=== PATIENT | male | born 1960 | race Caucasian/White ===

== ENCOUNTER → 2018-03-07 11:00 | Outpatient (CLI) | payer OTHER, BC, SELFPAY ==
--- NOTE | 2018-03-07 11:00 | DT_ITS ---
This patient was seen during an EMR downtime March 04, 2018 - March 11, 2018. This patient may have a combination of paper and electronic documentation or all paper documentation. All documentation is viewable within the e-chart portion of [facility] for each patient visit.
== END ==
PROVIDERS: Family Provider Family Medicine; PCP Family Medicine; Visit Provider Family Medicine
DX: N41.9 Inflammatory disease of prostate, unspecified (principal)
CPT/HCPCS: 81001; 87086

== ENCOUNTER → 2018-04-10 17:43 | Outpatient (CLI) | payer OTHER, SELFPAY ==
[2018-04-10 17:45] LABS: Red Blood Cells-Urine 0 SEEN /hpf (0-5)
[2018-04-10 18:20] LABS: Color, Urine Amber (Yellow); Glucose, Dipstick Normal (Normal); Ketone-Dipstick 5 mg/dl (Negative); Leukocyte Esterase-Dipstick 25 /ul (Negative); Nitrite-Dipstick Negative (Negative); Occult Blood-Urine 10 /ul (Negative); Protein-Dipstick 30 mg/dl (Negative); Urine Clarity Clear (Clear); Urine Urobilinogen 1 mg/dl (Normal)
[2018-04-10 18:39] LABS: Urine Bilirubin Dipstick 1 mg/dL (Negative)
[2018-04-10 18:48] LABS: Hyaline Cast 10-25 SEEN /lpf (0-5)
[2018-04-10 18:49] LABS: Bacteria 2+ /hpf (None Seen)
[2018-04-10 18:50] LABS: Mucous, Urine 2+ /hpf (<or=2+); Squamous Epithelial Cells - UA 0-5 SEEN /hpf (0-5)
[2018-04-10 18:51] LABS: White Blood Cells 0-5 SEEN /hpf (0-5)
== END ==
PROVIDERS: Family Provider Family Medicine; PCP Family Medicine; Visit Provider Family Medicine
DX: N41.9 Inflammatory disease of prostate, unspecified (principal)
CPT/HCPCS: 81001; 87086

== ENCOUNTER → 2018-04-24 11:46 | Outpatient (CLI) | payer OTHER, SELFPAY ==
--- NOTE | 2018-04-24 11:50 | CT_ITS ---
STUDY: CT ABDOMEN AND PELVIS WITH CONTRAST REASON FOR EXAM: Male, 58 years old. Lower abdominal pain, distention RADIATION DOSAGE (If Supplied By Facility): CTDIvol = ( 18.36 ) mGy, DLP = ( 1505.37 ) mGycm TECHNIQUE: Transaxial images were obtained from the dome of the diaphragm to the symphysis pubis without oral contrast. 100ML ml of Isovue 300 contrast was administered. Sagittal and coronal images were reconstructed. Individualized dose optimization techniques were used for this CT. COMPARISON: None. FINDINGS: The visualized lung bases are unremarkable. The visualized portions of the heart are within normal limits. Normal liver. Normal gallbladder and extrahepatic biliary system. Normal spleen. Normal pancreas. Normal bilateral adrenal glands. No obstructive uropathy, there are simple cysts in the left kidney each measuring approximately 1.5 cm. There is a small hiatal hernia. Normal small intestine. Normal colon. There is non-visualization of the appendix. Normal abdominal aorta. Normal inferior vena cava. Normal retroperitoneum. Normal urinary bladder. There are prostatic calcifications. Bilateral scrotal hydroceles noted Normal abdominal wall. There are diffuse degenerative changes of the visualized lumbar spine. CT/Abdomen/Pelvis WITH Contrast IMPRESSION: No CT evidence of an acute inflammatory process. Specifically, the prostate is not enlarged and demonstrates scattered calcifications suggesting chronic prostatitis. No suspicious solid organ abnormality, simple left renal cysts No free intraperitoneal fluid, air, or suspicious adenopathy Electronically Signed: Agustin Perkins MD at 13:54 EDT , Service support ,
[2018-04-24 14:15] LABS: CREATININE FINGERSTICK 1.3 mg/dL (0.70-1.30)
== END ==
PROVIDERS: Family Provider Family Medicine; PCP Family Medicine; Visit Provider Family Medicine
DX: R10.9 Unspecified abdominal pain (principal)
CPT/HCPCS: 74177; Q9967

== ENCOUNTER → 2018-07-27 07:16 | Outpatient (CLI) | payer OTHER, SELFPAY ==
[2018-07-27 08:32] LABS: PSA,Total - Annual Screen 1.19 ng/mL (0.00-4.00)
== END ==
PROVIDERS: Family Provider Family Medicine; PCP Family Medicine; Referring Provider Nurse Practitioner Adult Health; Visit Provider Nurse Practitioner Adult Health
DX: Z12.5 Encounter for screening for malignant neoplasm of prostate (principal)
CPT/HCPCS: 36415; 84153; G0103

== ENCOUNTER → 2018-11-12 11:59 | Outpatient (CLI) | payer OTHER, SELFPAY ==
[2016-11-26 09:07] VITALS: BMI 31.2
[2018-11-12 12:25] LABS: Bacteria 0 SEEN /hpf (None Seen); Mucous, Urine 0 SEEN /hpf (<or=2+); Red Blood Cells-Urine 0 SEEN /hpf (0-5)
[2018-11-12 15:49] LABS: Absolute Lymphocyte Count 1.31 X10^3/ul (0.83-4.51); Basophil# 0.02 X10^3/uL; Basophil% 0.4 % (0-1); Eosinophil# 0.06 X10^3/uL; Eosinophils% 1.1 % (0-5); Hematocrit 42.6 % (40-54); Hemoglobin 13.6 g/dl (13.0-16.5); Lymphocyte # 1.31 X10^3/ul (4.0); Mean Corp Hgb Conc 31.9 g/gl (32-36); Mean Corpuscular Hgb 23.6 pg (27.0-32.0); Mean Corpuscular Volume 73.8 fL (80-94); Monocyte# 0.29 X10^3/uL; Monocyte% 5.1 % (0-10); Neutrophil % 70.2 % (47-70); Platelet Count 275 K/mm3 (150-450); RBC Distribution Width CV 16.3 % (11.6-14.6); RBC Distribution Width SD 43.1 fl (35.1-43.9); Red Blood Count 5.77 M/mm3 (4.6-6.2); White Blood Count 5.7 K/mm3 (4.4-11.0)
[2018-11-12 15:56] LABS: Color, Urine Yellow (Yellow); Glucose, Dipstick Normal (Normal); Ketone-Dipstick 5 mg/dl (Negative); Leukocyte Esterase-Dipstick 25 /ul (Negative); Nitrite-Dipstick Negative (Negative); Occult Blood-Urine Negative /ul (Negative); POSITIVE COUNT NO; POSITIVE DIFFERENTIAL NO; POSITIVE MORPHOLOGY NO; Protein-Dipstick 15 mg/dl (Negative); Urine Bilirubin Dipstick Negative (Negative); Urine Clarity Clear (Clear); Urine Urobilinogen Normal (Normal)
[2018-11-12 16:10] LABS: Squamous Epithelial Cells - UA 0-5 SEEN /hpf (0-5); White Blood Cells 0-5 SEEN /hpf (0-5)
[2018-11-12 16:16] LABS: ALB/GLOB Ratio 1.3 RATIO (0.9-2.4); AST(SGOT) 15 U/L (15-37); Alanine Aminotransfer ALT/SGPT 23 U/L (16-61); Albumin, Serum 4.3 g/dL (3.2-5.0); Alkaline Phosphatase 82 U/L (45-117); Anion Gap 10 (5-15); BUN 12 mg/dL (7-18); BUN/Creat Ratio 12.4 RATIO (10-20); Calcium,Total 8.6 mg/dL (8.5-10.1); Chloride 105 mmol/L (98-107); Creatinine, Serum 0.97 mg/dL (0.70-1.30); EST Glomerular Filtration Rate 85 mL/min (>60); Est Glom Filt Rate - Afr Amer 103 mL/min (>60); Globulin 3.4 g/dL (2.2-4.2); Glucose 101 mg/dL (74-106); Protein, Total 7.7 g/dL (6.4-8.2); Sodium Level 139 mmol/L (136-145)
== END ==
PROVIDERS: Family Provider Family Medicine; PCP Family Medicine; Visit Provider Family Medicine
DX: N41.0 Acute prostatitis (principal)
CPT/HCPCS: 36415; 80053; 81001; 85025

== ENCOUNTER → 2018-12-06 17:11 | Outpatient (CLI) | payer OTHER, SELFPAY ==
[2016-11-26 09:07] VITALS: BMI 31.2
--- NOTE | 2018-12-06 17:13 | RAD_ITS ---
STUDY: X-RAY CHEST REASON FOR EXAM: Male, 58 years old. Pain TECHNIQUE: Frontal and lateral views COMPARISON: May 05, 2015 FINDINGS: The lungs are clear and expanded. There is no demonstrated pleural abnormality. Normal size heart. Normal mediastinum and shonna. Normal visualized pulmonary arteries. Normal visualized aortic arch and descending thoracic aorta. Degenerative changes of the thoracic spine. Normal visualized ribs, clavicles, and shoulders. There is no demonstrated abnormality of the visualized soft tissue structures of the upper abdomen. RAD/Chest PA and Lateral IMPRESSION: Normal x-ray examination of the chest. Electronically Signed: Costa Marquez DO at 19:04 EST Tel [phone], Service support ,
== END ==
PROVIDERS: Family Provider Family Medicine; PCP Family Medicine; Referring Provider Family Medicine; Visit Provider Family Medicine
DX: R07.9 Chest pain, unspecified (principal)
CPT/HCPCS: 71046

== ENCOUNTER 2018-12-09 12:22 | Observation (INO) | payer OTHER, SELFPAY ==
[2018-12-09] VITALS (16 sets, daily range): BP systolic 158–198; BP diastolic 80–110; PULSE 44–72; RESP 11–18; TEMP 36.3–36.8; O2SAT 96–100; BMI 30.8; BMI 31.1
--- NOTE | 2018-12-09 12:36 | EKG12_ITS ---
Test Reason : CP Blood Pressure : / mmHG Vent. Rate : 052 BPM Atrial Rate : 052 BPM P-R Int : 128 ms QRS Dur : 102 ms QT Int : 416 ms P-R-T Axes : 006 064 042 degrees QTc Int : 386 ms Sinus bradycardia Otherwise normal ECG Confirmed by JOESPH GARCIA, FLORENCE ([id number]), tape editor EMILY RODAS ([id number]) on 12/12/2018 10:38:14 AM Referred By: Stevie Marte Confirmed By:FLORENCE PINK MD
--- NOTE | 2018-12-09 12:45 | RAD_ITS ---
STUDY: X-RAY CHEST REASON FOR EXAM: Male, 58 years old. Chest pain. TECHNIQUE: Single AP portable view of the chest. COMPARISON: Comparison is made with prior study dated December 06, 2018. FINDINGS: EKG electrodes are seen. The lungs are clear and expanded. There is no demonstrated pleural abnormality. Normal size heart. Normal mediastinum and shonna. Normal visualized pulmonary arteries. There is atherosclerotic tortuosity of the aortic arch and descending thoracic aorta. There are diffuse degenerative changes of the visualized thoracic spine. Normal visualized ribs, clavicles, and shoulders. There is no demonstrated abnormality of the visualized soft tissue structures of the upper abdomen. RAD/Chest 1 View (Portable) IMPRESSION: No acute abnormality is seen. Electronically Signed: Meir Richardson, at 13:11 EDT , Service support ,
--- NOTE | 2018-12-09 13:02 | EKG12_ITS ---
Test Reason : REPEAT CP Blood Pressure : / mmHG Vent. Rate : 048 BPM Atrial Rate : 048 BPM P-R Int : 136 ms QRS Dur : 104 ms QT Int : 444 ms P-R-T Axes : 000 061 033 degrees QTc Int : 396 ms Sinus bradycardia Otherwise normal ECG Confirmed by JEOSPH GARCIA, FLORENCE ([id number]), food expeditor EMILY RODAS ([id number]) on 12/12/2018 10:37:26 AM Referred By: Stevie Marte Confirmed By:FLORENCE PINK MD
[2018-12-09 13:10] LABS: Anion Gap 10 (5-15); BUN 12 mg/dL (7-18); BUN/Creat Ratio 11.8 RATIO (10-20); Calcium,Total 8.6 mg/dL (8.5-10.1); Chloride 107 mmol/L (98-107); Creatinine, Serum 1.02 mg/dL (0.70-1.30); EST Glomerular Filtration Rate 80 mL/min (>60); Est Glom Filt Rate - Afr Amer 97 mL/min (>60); Estimated Creatinine Clearance 94.02 ml/min; Glucose 86 mg/dL (74-106); Potassium 4.3 mmol/L (3.5-5.1); Sodium Level 142 mmol/L (136-145)
[2018-12-09 13:24] LABS: Absolute Lymphocyte Count 1.31 X10^3/ul (0.83-4.51); Absolute Neutrophil Count 3.4 X10^3/uL (2.0-7.7); Basophil# 0.02 X10^3/uL; Basophil% 0.4 % (0-1); Eosinophil# 0.05 X10^3/uL; Hematocrit 40.8 % (40-54); Hemoglobin 13.1 g/dl (13.0-16.5); Lymphocyte # 1.31 X10^3/ul (4.0); Lymphocyte % 25.1 % (19-41); Mean Corp Hgb Conc 32.1 g/gl (32-36); Mean Corpuscular Hgb 24.1 pg (27.0-32.0); Monocyte% 7.7 % (0-10); Neutrophil # 3.43 X10^3/uL (2.7-7.7); Neutrophil % 65.6 % (47-70); Platelet Count 279 K/mm3 (150-450); RBC Distribution Width CV 16.1 % (11.6-14.6); RBC Distribution Width SD 43.3 fl (35.1-43.9); Red Blood Count 5.44 M/mm3 (4.6-6.2); White Blood Count 5.2 K/mm3 (4.4-11.0)
[2018-12-09 13:31] LABS: POSITIVE COUNT NO; POSITIVE DIFFERENTIAL NO; POSITIVE MORPHOLOGY NO
[2018-12-09] MEDS: 0.9% Normal Saline 1,000 ML 150 ML IV (13:31)
[2018-12-09] MEDS: Aspirin 81 MG TAB.CHEW 324 MG PO (13:31)
[2018-12-09] MEDS: Acetaminophen 500 MG Tablet 1000 MG PO (13:43)
[2018-12-09] MEDS: Nitroglycerin Oint 1 INCH PACKET TRANSDERM. (14:37)
--- NOTE | 2018-12-09 14:45 | ED.VISSUMM ---
- ER Visit Summary Date of Service: 12/09/18 Chief Complaint: [Chest pain] History of Present Illness: The patient is a 58 M [presents to the emergency department complaint of chest discomfort started 4 days ago. Patient states that he had pain relatively continuously 4 days ago and was actually seen by his primary care physician who did an EKG and some blood work and scheduled an outpatient stress test. Patient was told that if his pain return to come to the emergency department. Patient states that while at work today he had some exertional chest discomfort and some shortness of breath. He denies any nausea or vomiting with the chest discomfort. He denies any diaphoresis. Patient states the pain in his left chest radiated to behind his left scapula. He denies any pain into the arm, neck, or jaw. He denies recent travel or surgery. Patient is a diabetic and has a history of hypertension. Patient has no cardiac history otherwise. No family history of heart disease. Patient does not smoke.] Physical Examination: [HEENT-PERRLA, EOMI. Cranial nerves II through XII grossly intact. TMs clear. Mucous membranes moist. No adenopathy. Cardiovascular-regular rate and rhythm without murmur or ectopy Lungs-clear to auscultation, chest wall stable without crepitus or subcu emphysema Abdomen-normoactive bowel sounds, soft, nontender, no rebound or rigidity, no peritoneal signs. Extremities-intact ?4, normal range of motion, normal pulses, atraumatic] Test Results: [EKG obtained on arrival shows sinus rhythm with a ventricular rate of 52 bpm with some nonspecific ST changes noted. CBC with differential was normal. Chemistries unremarkable. Troponin was less than 0.015. Chest x-ray showed nothing acute. While in the department patient initially received aspirin and a nitroglycerin sublingual x2 which resolved his pain but then the pain started come back and a repeat EKG was obtained that showed a sinus rhythm with a ventricular rate of 48 bpm but is unchanged from the first EKG. Patient had an inch of Nitropaste placed to the anterior chest wall.] Emergency Department Course and Treatment: [Patient received aspirin and nitroglycerin.] Treatment Plan: [Patient will be admitted for further workup and evaluation] Disposition: [Admit] Impression: [Chest pain-rule out acute coronary syndrome] This note was generated with Xan[employer]ation software. It may contain incorrect words, spelling, and punctuation that were not noted in review of the chart prior to signing ED Disposition - Plan for ED Patient: Referrals: Qasim Ellis MD [Primary Care Provider] -
--- NOTE | 2018-12-09 14:48 | ED.DCSUM_ITS ---
- ER Visit Summary Date of Service: 12/09/18 Chief Complaint: [Chest pain] History of Present Illness: The patient is a 58 M [presents to the emergency department complaint of chest discomfort started 4 days ago. Patient states that he had pain relatively continuously 4 days ago and was actually seen by his primary care physician who did an EKG and some blood work and scheduled an outpatient stress test. Patient was told that if his pain return to come to the emergency department. Patient states that while at work today he had some exertional chest discomfort and some shortness of breath. He denies any nausea or vomiting with the chest discomfort. He denies any diaphoresis. Patient states the pain in his left chest radiated to behind his left scapula. He denies any pain into the arm, neck, or jaw. He denies recent travel or surgery. Patient is a diabetic and has a history of hypertension. Patient has no cardiac history otherwise. No family history of heart disease. Patient does not smoke.] Physical Examination: [HEENT-PERRLA, EOMI. Cranial nerves II through XII grossly intact. TMs clear. Mucous membranes moist. No adenopathy. Cardiovascular-regular rate and rhythm without murmur or ectopy Lungs-clear to auscultation, chest wall stable without crepitus or subcu emphysema Abdomen-normoactive bowel sounds, soft, nontender, no rebound or rigidity, no peritoneal signs. Extremities-intact ?4, normal range of motion, normal pulses, atraumatic] Test Results: [EKG obtained on arrival shows sinus rhythm with a ventricular rate of 52 bpm with some nonspecific ST changes noted. CBC with differential was normal. Chemistries unremarkable. Troponin was less than 0.015. Chest x- ray showed nothing acute. While in the department patient initially received aspirin and a nitroglycerin sublingual x2 which resolved his pain but then the pain started come back and a repeat EKG was obtained that showed a sinus rhythm with a ventricular rate of 48 bpm but is unchanged from the first EKG. Patient had an inch of Nitropaste placed to the anterior chest wall.] Emergency Department Course and Treatment: [Patient received aspirin and nitroglycerin.] Treatment Plan: [Patient will be admitted for further workup and evaluation] Disposition: [Admit] Impression: [Chest pain-rule out acute coronary syndrome] This note was generated with Radio[employer] software. It may contain incorrect words, spelling, and punctuation that were not noted in review of the chart prior to signing ED Disposition - Plan for ED Patient: Referrals: Qasim Ellis MD [Primary Care Provider] -
--- NOTE | 2018-12-09 15:05 | PCM.HP.STD ---
Problem List (1) HTN (hypertension) Status: Chronic (2) Gastro-esophageal reflux Status: Chronic (3) Chest pain Status: Acute (4) Borderline type 2 diabetes mellitus Status: Chronic History of Present Illness Date of Admission: 12/09/18 Chief Complaint: Chest pain The patient is a 58 year old M with history of hypertension, borderline diabetes mellitus and lower back pain came to ED with chest pain. Patient had chest pain on last Sunday which started in the morning and lasted almost all day for which he went to PCP at about 4 PM. On that day, he did exert himself with some heavy work. Patient had EKG which was normal sinus rhythm and was sent home. After that, he again had chest pain which was not exertion related, radiating to the interscapular space. He also had pain in his left shoulder. Denies any slight shortness of breath, near-syncope or syncope. EKG shows sinus bradycardia at 52 bpm QTC 386 seconds. [] In our EMR, he had echo done in 2012 which reported as EF 65% with left ventricle systolic function normal. Normal right and left atria. Essentially normal study. At that time he had, he had exercise stress test which I do not see report. Patient remembers he also had cardiac cath probably in 2004 which was normal. I do not see any report in our system. Past Medical History Past Medical History (Chronic Problems): Chronic Problems Borderline type 2 diabetes mellitus (Chronic) HTN (hypertension) (Chronic) Gastro-esophageal reflux (Chronic) Allergies No Known Allergies Allergy (Verified 11/26/16 09:07) Home Medications: Ambulatory Orders Medication Instructions Recorded Amlodipine [Norvasc] 5 mg PO DAILY 11/26/16 Atenolol [Tenormin (beta Tiffanie)] 25 mg PO DAILY 11/26/16 Lisinopril [Zestril] 40 mg PO BID 11/26/16 Omeprazole [Prilosec] 40 mg PO DAILY 11/26/16 Tamsulosin HCl [Flomax] 0.4 mg PO DAILY 11/26/16 Acetaminophen [Tylenol Extra 500 - 1,000 mg PO Q6H PRN PRN 12/09/18 Strength] Ammonium Lactate [Skin Treatment] 1 applic TP DAILY 12/09/18 Meloxicam 15 mg PO DAILY 12/09/18 Metformin HCl 500 mg PO DAILY 12/09/18 Surgical History: no surgical history Smoking Status: Never smoker - *Family History Paternal History Items: - - Denies heart attack/[place] in first-degree family relative. [place] in paternal uncle Review of Systems Constitutional: Denies: Chills, Fever, Weight Change HEENT: Denies: Head Aches, Sinus Congestion, Sinus Drainage Cardiovascular: Reports: Chest Pain. Denies: Palpitations Respiratory: Denies: Cough, Shortness of breath at rest, Sputum production Gastrointestinal: Denies: Abdominal Pain, Nausea, Vomiting Genitourinary: Denies: Dysuria Musculoskeletal: Reports: Back Pain. Denies: Joint Pain, Joint Tenderness Skin: Denies: Rash, Wounds Neurological: Denies: Numbness, Tingling, Focal weakness Psychiatric: Denies: Anxiety, Depression, Homicidal Ideations, Suicidal Ideations Hematologic/ Lymphatic: Denies: Easy Bruising, Easy Bleeding VTE Information - Inpt Only VTE Present on Admission: No VTE Mechan Device Prophylaxis: SCD's, None VTE Pharm Prophylaxis ordered?: Yes - Physical Exam General: Alert, Oriented x3, Cooperative HEENT: Atraumatic, PERRLA, EOMI, Normocephalic Neck: Supple, No JVD, Negative Carotid Bruits Lungs: Clear to auscultation, Normal air movement, No rhonchi, No wheeze, No rales Cardiovascular: Regular rate, No murmurs Abdomen: Bowel Sounds Present, Soft, Non Tender, Non-Distended Extremities: No edema, Capillary Refill Less than 3 Seconds Skin: No rashes, No breakdown Musculoskeletal: No Tenderness to Palpation of Joints or Extremities, Arthritic Changes Lymphatic: No Cervical, Supraclavicular, or Inguinal Adenopathy Neurological: Cranial nerves II-XII grossly intact, Deep Tendon Reflexes 2+/4 and Symmetrical, Neuro grossly intact, Motor Exam 5/5 strength throughout Psych/Mental Status: Normal Affect, Appropriate Vital Signs Temp Pulse Resp BP Pulse Ox 98 F 46 L 11 L 171/96 H 99 12/09/18 12:23 12/09/18 14:37 12/09/18 14:30 12/09/18 14:37 12/09/18 14:30 Oxygen Delivery Method Room Air Weight: 240 lb Body Mass Index (BMI) 30.8 Laboratory Tests Past 24 Hrs 12/09/18 12/09/18 12/09/18 12:30 12:30 13:19 WBC Cancelled 5.2 Corrected WBC Cancelled RBC Cancelled 5.44 Hgb Cancelled 13.1 Hct Cancelled 40.8 MCV Cancelled 75.0 L MCH Cancelled 24.1 L MCHC Cancelled 32.1 RDW Cancelled 16.1 H RDW Differential Cancelled 43.3 Plt Count Cancelled 279 MPV Cancelled 10.0 Immature Gran % (Auto) Cancelled 0.200 Neut % (Auto) Cancelled 65.6 Lymph % (Auto) Cancelled 25.1 [place] % (Auto) Cancelled 7.7 Eos % (Auto) Cancelled 1.0 Baso % (Auto) Cancelled 0.4 Immature Gran # (Auto) Cancelled Absolute Neuts (auto) Cancelled 3.4 Absolute Lymphs (auto) Cancelled 1.31 Absolute Monos (auto) Cancelled Total Counted Cancelled Not Reportable Neutrophils % (Manual) Cancelled Band Neutrophils % Cancelled Lymphocytes % (Manual) Cancelled Monocytes % (Manual) Cancelled Eosinophils % (Manual) Cancelled Basophils % (Manual) Cancelled Metamyelocytes % Cancelled Myelocytes % Cancelled Promyelocytes % Cancelled Blast Cells % Cancelled Plasma Cell % (Manual) Cancelled Other Cells % Cancelled Lymphocytes # Cancelled Nucleated RBCs/100 WBC Cancelled Differential Comment Cancelled Diff Path Review Cancelled Hypersegmented Neuts Cancelled Atypical Lymphocytes Cancelled Reactive Lymphocytes Cancelled Smudge Cells Cancelled Eosinophilia # Cancelled Basophilia # Cancelled Toxic Granulation Cancelled Dohle Bodies Cancelled Felicia Rods Cancelled Platelet Estimate Cancelled Plt Morphology Comment Cancelled RBC Morphology Cancelled Polychromasia Cancelled Hypochromasia Cancelled Poikilocytosis Cancelled Basophilic Stippling Cancelled Anisocytosis Cancelled Microcytosis Cancelled Macrocytosis Cancelled Spherocytes Cancelled Sickle Cells Cancelled Target Cells Cancelled Tear Drop Cells Cancelled Ovalocytes Cancelled Stomatocytes Cancelled [place] Bodies Cancelled [place] Cells Cancelled Bite Cells Cancelled Acanthocytes (Spur) Cancelled Rouleaux Cancelled Schistocytes Cancelled Sodium 142 Potassium 4.3 Chloride 107 Carbon Dioxide 25.0 Anion Gap 10 BUN 12 Creatinine 1.02 Estim Creat Clear Calc 94.02 Est GFR (MDRD) Af Amer 97 Est GFR (MDRD) Non-Af 80 BUN/Creatinine Ratio 11.8 Glucose 86 Calcium 8.6 Troponin I < 0.015 Assessment/Plan All Active Problems Chest pain (Acute) The patient is a 58 year old M with history of hypertension, borderline diabetes mellitus and lower back pain came to ED with chest pain. Patient had chest pain on last Sunday which started in the morning and lasted almost all day for which he went to PCP at about 4 PM. On that day, he did exert himself with some heavy work. Patient had EKG which was normal sinus rhythm and was sent home. After that, he again had chest pain which was not exertion related, radiating to the interscapular space. He also had pain in his left shoulder. Denies any slight shortness of breath, near-syncope or syncope. EKG shows sinus bradycardia at 52 bpm QTC 386 seconds. [] In our EMR, he had echo done in 2012 which reported as EF 65% with left ventricle systolic function normal. Normal right and left atria. Essentially normal study. At that time he had, he had exercise stress test which I do not see report. Patient remembers he also had cardiac cath probably in 2004 which was normal. I do not see any report in our system. 1. Atypical chest pain: Patient is being admitted in PCU. First troponin negative. Cycle cardiac enzymes. Exercise stress test tomorrow morning. TSH and fasting profile tomorrow a.m. 2. Hypertension: Blood pressure is not controlled. Patient is on lisinopril 40 mg twice daily and amlodipine 5 mg daily at home. Monitor blood pressure. Hydralazine 10 mm IV every 4 hourly as needed for systolic blood pressure more than 180 mmHg. 3. Borderline diabetes mellitus type 2: Patient glucose in [facility] is 86. A1c tomorrow a.m. 4. Other comorbidities include gastroesophageal reflux, chronic back pain: Home medications continued. DVT prophylaxis: On Lovenox 40 g subcu daily. Laboratory Results 12/09/18 12:30: Sodium 142, Potassium 4.3, Chloride 107, Carbon Dioxide 25.0, Anion Gap 10, BUN 12, Creatinine 1.02, Estim Creat Clear Calc 94.02, Est GFR (MDRD) Af Amer 97, Est GFR (MDRD) Non-Af 80, BUN/Creatinine Ratio 11.8, Glucose 86, Calcium 8.6, Troponin I < 0.015 12/09/18 13:19: WBC 5.2, RBC 5.44, Hgb 13.1, Hct 40.8, MCV 75.0 L, MCH 24.1 L, MCHC 32.1, RDW 16.1 H, RDW Differential 43.3, Plt Count 279, MPV 10.0, Immature Gran % (Auto) 0.200, Neut % (Auto) 65.6, Lymph % (Auto) 25.1, [place] % (Auto) 7.7, Eos % (Auto) 1.0, Baso % (Auto) 0.4, Absolute Neuts (auto) 3.4, Absolute Lymphs (auto) 1.31, Total Counted Not Reportable 12/09/18 15:30: Troponin I Pending Code Visit OBSV E&M: 24508 Initial observation care L3
--- NOTE | 2018-12-09 15:06 | EKG12_ITS ---
Test Reason : CP ADMIT Blood Pressure : / mmHG Vent. Rate : 050 BPM Atrial Rate : 050 BPM P-R Int : 132 ms QRS Dur : 092 ms QT Int : 456 ms P-R-T Axes : 054 066 037 degrees QTc Int : 415 ms Sinus bradycardia Otherwise normal ECG When compared with ECG of 05-OCT-2012 05:31, No significant change was found Confirmed by JOESPH GARCIA, FLORENCE ([id number]), restaurant expeditor EMILY RODAS ([id number]) on 12/13/2018 9:39:32 AM Referred By: Stevie Marte Confirmed By:FLORENCE PINK MD
[2018-12-09] MEDS: amLODIPine 5 MG Tablet PO (16:10)
[2018-12-09] MEDS: Lisinopril 40 MG Tablet PO (16:10)
[2018-12-09] MEDS: Enoxaparin 40 MG/0.4 ML Syringe SC (16:10)
[2018-12-09] MEDS: Tamsulosin HCl 0.4 MG Capsule PO (17:35)
[2018-12-09] MEDS: Acetaminophen 325 MG Tablet 650 MG PO (21:12)
[2018-12-09] MEDS: hydrALAZINE 20 MG/ML Vial 10 MG IV (21:21)
[2018-12-09] MEDS: 0.9% NaCl Peripheral Flush Adult/Peds IV (21:21)
[2018-12-10 03:02] VITALS: PULSE 59
[2018-12-10 03:12] VITALS: BP 130/67; PULSE 56; RESP 16; TEMP 36.4; O2SAT 97
[2018-12-10] MEDS: Acetaminophen 325 MG Tablet 650 MG PO (03:14)
[2018-12-10 05:51] LABS: Absolute Lymphocyte Count 1.38 X10^3/ul (0.83-4.51); Absolute Neutrophil Count 4.3 X10^3/uL (2.0-7.7); Basophil# 0.02 X10^3/uL; Basophil% 0.3 % (0-1); Eosinophil# 0.06 X10^3/uL; Eosinophils% 0.9 % (0-5); Hematocrit 39.6 % (40-54); Hemoglobin 12.7 g/dl (13.0-16.5); International Normalized Ratio 1.1; Lymphocyte # 1.38 X10^3/ul (4.0); Lymphocyte % 21.7 % (19-41); Mean Corp Hgb Conc 32.1 g/gl (32-36); Mean Corpuscular Hgb 23.8 pg (27.0-32.0); Mean Corpuscular Volume 74.3 fL (80-94); Mean Platelet Vol. 10.9 fl (6.2-12.0); Monocyte# 0.56 X10^3/uL; Monocyte% 8.8 % (0-10); Neutrophil # 4.34 X10^3/uL (2.7-7.7); Neutrophil % 68.1 % (47-70); Platelet Count 249 K/mm3 (150-450); Prothrombin Time (Protime)PT. 13.9 SECONDS (11.7-14.9); RBC Distribution Width SD 42.9 fl (35.1-43.9); Red Blood Count 5.33 M/mm3 (4.6-6.2); White Blood Count 6.4 K/mm3 (4.4-11.0)
[2018-12-10 05:52] LABS: Partial Thromboplast Time 28.1 Seconds (24.1-36.2)
--- NOTE | 2018-12-10 05:55 | EKG12_ITS ---
Test Reason : AM EKG Blood Pressure : / mmHG Vent. Rate : 055 BPM Atrial Rate : 055 BPM P-R Int : 128 ms QRS Dur : 104 ms QT Int : 442 ms P-R-T Axes : 013 069 030 degrees QTc Int : 422 ms Sinus bradycardia Otherwise normal ECG When compared with ECG of 09-DEC-2018 16:25, MANUAL COMPARISON REQUIRED, DATA IS UNCONFIRMED Confirmed by JOESPH GARCIA, FLORENCE ([id number]), material expeditor EMILY RODAS ([id number]) on 12/13/2018 9:38:30 AM Referred By: ASHLEY Confirmed By:FLORENCE PINK MD
[2018-12-10] MEDS: Lisinopril 40 MG Tablet PO (06:23)
[2018-12-10] MEDS: Aspirin E.C. 81 MG Tablet PO (06:23)
[2018-12-10 06:24] VITALS: BP 179/111; PULSE 74; RESP 16; TEMP 36.4; O2SAT 99
[2018-12-10 06:37] LABS: Anion Gap 11 (5-15); BUN 11 mg/dL (7-18); BUN/Creat Ratio 13.1 RATIO (10-20); Calcium,Total 8.3 mg/dL (8.5-10.1); Chloride 107 mmol/L (98-107); Cholesterol 197 mg/dL (200); Creatinine, Serum 0.84 mg/dL (0.70-1.30); EST Glomerular Filtration Rate 100 mL/min (>60); Est Glom Filt Rate - Afr Amer 121 mL/min (>60); Estimated Creatinine Clearance 114.17 ml/min; Glucose 109 mg/dL (74-106); High Density Lipoprotein 34 mg/dL; Potassium 3.7 mmol/L (3.5-5.1); Sodium Level 143 mmol/L (136-145); Thyroid Stim Hormone (TSH) 1.16 uIU/mL (0.358-3.74); Triglycerides 245 mg/dL; Very Low Density Lipoprotein 49 mg/dL (5-40)
[2018-12-10 06:45] LABS: POSITIVE COUNT NO; POSITIVE DIFFERENTIAL NO; POSITIVE MORPHOLOGY NO
[2018-12-10 08:35] LABS: Hemoglobin A1c 6.1 % (4.2-6.3)
[2018-12-10 08:43] VITALS: PULSE 79
--- NOTE | 2018-12-10 08:59 | STRESSREP ---
Stress Test Report Pharmacologic myocardial perfusion stress test. 58-year-old man with a history of chest pain. Stress protocol: Resting EKG demonstrates normal sinus rhythm with a rate of 67 bpm normal intervals are noted resting blood pressure 170/115 mmHg. 0.4 mg of regadenoson was infused per usual protocol followed by rapid intravenous saline flush injection continuous EKG monitoring was performed. The maximum heart rate attained was 99 bpm which was 60% of maximum predicted heart rate the maximum workload was 1 metabolic equivalent. At rest there were no ST or T wave changes noted suggest abnormal flow reserve at peak infusion nonspecific ST-T wave changes were noted with normally the criteria for ischemia no clinical angina was noted the resting blood pressure was 170/115 mmHg. Myocardial perfusion protocol. 14.4 mCi of technetium 99m sestamibi was injected at rest. 0.4 mg of regadenoson was infused per usual protocol peak infusion 44.5 mCi of technetium 99m sestamibi was injected stress images were obtained stress and rest images were reconstructed and compared in the short axis vertical long horizontal long axis. Gated images were also obtained next Perfusion SPECT analysis: Review of the stress images demonstrate normal uptake of tracer noted in all areas of the myocardium. The resting images similarly demonstrate normal uptake of tracer noted in all areas of myocardium. No areas of reversibility are noted suggest ischemia no previous infarct is noted. Gated SPECT analysis: The gated ejection fraction is noted to be 65%. Conclusion: Normal pharmacologic myocardial perfusion stress test. Preserved ejection fraction.
[2018-12-10 09:26] VITALS: BP 154/104; PULSE 63; RESP 16; TEMP 36.4; O2SAT 99
[2018-12-10] MEDS: Atenolol 25 MG Tablet PO (09:36)
[2018-12-10] MEDS: Pantoprazole Sodium 40 MG Tablet PO (09:36)
--- NOTE | 2018-12-10 10:04 | DCINST_ITS ---
- Discharge Diagnoses Current Active Problems: Current Active and Chronic Problems Borderline type 2 diabetes mellitus (Chronic) You will use the following diet at home:: Calorie/Carbohydrate Controlled (specify 1200, 1400, etc) - 1800 Discharge Activity: Return to Normal Activity Instructions: ED Chest Pain NonCardiac Allergies/Adverse Reactions: Allergies No Known Allergies Allergy (Verified 11/26/16 09:07) Medications to take at Discharge Atenolol [Tenormin (beta donaldo)] 25 mg PO DAILY 11/26/16 Lisinopril [Zestril] 40 mg PO BID 11/26/16 Omeprazole [Prilosec] 40 mg PO DAILY 11/26/16 Tamsulosin HCl [Flomax] 0.4 mg PO DAILY 11/26/16 Acetaminophen [Tylenol] 500 - 1,000 mg PO Q6H PRN PRN 12/09/18 Ammonium Lactate [Skin Treatment] 1 applic TP DAILY 12/09/18 Meloxicam 15 mg PO DAILY 12/09/18 Metformin HCl 500 mg PO DAILY 12/09/18 Amlodipine [Norvasc] 10 mg PO DAILY #60 tablet 12/10/18 The following prescriptions were given: Amlodipine [Norvasc] 10 mg PO DAILY #60 tablet Primary Care Physician: Qasim Ellis MD [Primary Care Provider] - Please follow up with your Primary Care Physician in: in 5-7 days Test Results: Test results from this visit will be discussed in further detail at your follow- up appointment, if applicable. Proposed Discharge Date: 12/10/18
--- NOTE | 2018-12-10 10:04 | PCM.DC.SUM ---
Discharge Date and Diagnosis Date of Admission: 12/09/18 Date of Discharge: 12/10/18 - Primary Discharge Diagnosis Acute chest pain - Secondary Discharge Diagnosis Chronic Problems Borderline type 2 diabetes mellitus (Chronic) HTN (hypertension) (Chronic) Gastro-esophageal reflux (Chronic) Hospital Course and Treatment Imaging Results: 12/10/18 05:55 Nuclear Stress Test - Chemical [NM] Routine Summary of Care Provided: The patient is a 58 year old M with medical history significant for diet-controlled diabetes, hypertension who presented with chest pain. 1. Chest pain: Patient was placed on a monitored bed AR was ruled out with serial cardiac enzymes. Patient subsequently underwent a nuclear stress test which was negative for stress-induced ischemia 2. Accelerated hypertension. Patient was previously on amlodipine 25 mg p.o. twice daily which was adjusted by PCP to 25 mg daily as a result of bradycardia. Patient blood pressure on admission was 171/111. He was on amlodipine dose was increased from 5 mg at bedtime to 10 mg at bedtime. He was instructed to follow-up with PCP for subsequent care 3. Obesity with BMI of 31.2 weight loss advised - Physical Exam General: Alert HEENT: Atraumatic Neck: Supple Lungs: Clear to auscultation Cardiovascular: Regular rate, Regular Rhythm Neurological: Neuro grossly intact Vital Signs Temp Pulse Resp BP Pulse Ox 97.6 F L 63 16 154/104 H 99 12/10/18 09:26 12/10/18 09:26 12/10/18 09:26 12/10/18 09:26 12/10/18 09:26 Oxygen Delivery Method Room Air Weight: 110.223 kg Body Mass Index (BMI) 31.1 Intake and Output for Last 24 Hours 12/08/18 12/09/18 12/10/18 23:59 23:59 23:59 Intake Total 800 / 800 60 / 60 Balance 800 / 800 60 / 60 Laboratory Tests Past 24 Hrs 12/09/18 12/09/18 12/09/18 12:30 12:30 13:19 WBC Cancelled 5.2 Corrected WBC Cancelled RBC Cancelled 5.44 Hgb Cancelled 13.1 Hct Cancelled 40.8 MCV Cancelled 75.0 L MCH Cancelled 24.1 L MCHC Cancelled 32.1 RDW Cancelled 16.1 H RDW Differential Cancelled 43.3 Plt Count Cancelled 279 MPV Cancelled 10.0 Immature Gran % (Auto) Cancelled 0.200 Neut % (Auto) Cancelled 65.6 Lymph % (Auto) Cancelled 25.1 [place] % (Auto) Cancelled 7.7 Eos % (Auto) Cancelled 1.0 Baso % (Auto) Cancelled 0.4 Immature Gran # (Auto) Cancelled Absolute Neuts (auto) Cancelled 3.4 Absolute Lymphs (auto) Cancelled 1.31 Absolute Monos (auto) Cancelled Total Counted Cancelled Not Reportable Neutrophils % (Manual) Cancelled Band Neutrophils % Cancelled Lymphocytes % (Manual) Cancelled Monocytes % (Manual) Cancelled Eosinophils % (Manual) Cancelled Basophils % (Manual) Cancelled Metamyelocytes % Cancelled Myelocytes % Cancelled Promyelocytes % Cancelled Blast Cells % Cancelled Plasma Cell % (Manual) Cancelled Other Cells % Cancelled Lymphocytes # Cancelled Nucleated RBCs/100 WBC Cancelled Differential Comment Cancelled Diff Path Review Cancelled Hypersegmented Neuts Cancelled Atypical Lymphocytes Cancelled Reactive Lymphocytes Cancelled Smudge Cells Cancelled Eosinophilia # Cancelled Basophilia # Cancelled Toxic Granulation Cancelled Dohle Bodies Cancelled Felicia Rods Cancelled Platelet Estimate Cancelled Plt Morphology Comment Cancelled RBC Morphology Cancelled Polychromasia Cancelled Hypochromasia Cancelled Poikilocytosis Cancelled Basophilic Stippling Cancelled Anisocytosis Cancelled Microcytosis Cancelled Macrocytosis Cancelled Spherocytes Cancelled Sickle Cells Cancelled Target Cells Cancelled Tear Drop Cells Cancelled Ovalocytes Cancelled Stomatocytes Cancelled [place] Bodies Cancelled [place] Cells Cancelled Bite Cells Cancelled Acanthocytes (Spur) Cancelled Rouleaux Cancelled Schistocytes Cancelled PT INR APTT Sodium 142 Potassium 4.3 Chloride 107 Carbon Dioxide 25.0 Anion Gap 10 BUN 12 Creatinine 1.02 Estim Creat Clear Calc 94.02 Est GFR (MDRD) Af Amer 97 Est GFR (MDRD) Non-Af 80 BUN/Creatinine Ratio 11.8 Glucose 86 Hemoglobin A1c Calcium 8.6 Troponin I < 0.015 Triglycerides Cholesterol LDL Cholesterol VLDL Cholesterol HDL Cholesterol TSH 12/09/18 12/09/18 12/10/18 15:30 18:28 05:05 WBC Corrected WBC RBC Hgb Hct MCV MCH MCHC RDW RDW Differential Plt Count MPV Immature Gran % (Auto) Neut % (Auto) Lymph % (Auto) [place] % (Auto) Eos % (Auto) Baso % (Auto) Immature Gran # (Auto) Absolute Neuts (auto) Absolute Lymphs (auto) Absolute Monos (auto) Total Counted Neutrophils % (Manual) Band Neutrophils % Lymphocytes % (Manual) Monocytes % (Manual) Eosinophils % (Manual) Basophils % (Manual) Metamyelocytes % Myelocytes % Promyelocytes % Blast Cells % Plasma Cell % (Manual) Other Cells % Lymphocytes # Nucleated RBCs/100 WBC Differential Comment Diff Path Review Hypersegmented Neuts Atypical Lymphocytes Reactive Lymphocytes Smudge Cells Eosinophilia # Basophilia # Toxic Granulation Dohle Bodies Felicia Rods Platelet Estimate Plt Morphology Comment RBC Morphology Polychromasia Hypochromasia Poikilocytosis Basophilic Stippling Anisocytosis Microcytosis Macrocytosis Spherocytes Sickle Cells Target Cells Tear Drop Cells Ovalocytes Stomatocytes [place] Bodies [place] Cells Bite Cells Acanthocytes (Spur) Rouleaux Schistocytes PT INR APTT Sodium 143 Potassium 3.7 Chloride 107 Carbon Dioxide 25.0 Anion Gap 11 BUN 11 Creatinine 0.84 Estim Creat Clear Calc 114.17 Est GFR (MDRD) Af Amer 121 Est GFR (MDRD) Non-Af 100 BUN/Creatinine Ratio 13.1 Glucose 109 H Hemoglobin A1c Calcium 8.3 L Troponin I < 0.015 < 0.015 Triglycerides 245 H Cholesterol 197 LDL Cholesterol 114 VLDL Cholesterol 49 H HDL Cholesterol 34 L TSH 1.16 12/10/18 12/10/18 12/10/18 05:05 05:05 05:05 WBC 6.4 Corrected WBC RBC 5.33 Hgb 12.7 L Hct 39.6 L MCV 74.3 L MCH 23.8 L MCHC 32.1 RDW 16.0 H RDW Differential 42.9 Plt Count 249 MPV 10.9 Immature Gran % (Auto) 0.200 Neut % (Auto) 68.1 Lymph % (Auto) 21.7 [place] % (Auto) 8.8 Eos % (Auto) 0.9 Baso % (Auto) 0.3 Immature Gran # (Auto) Absolute Neuts (auto) 4.3 Absolute Lymphs (auto) 1.38 Absolute Monos (auto) Total Counted Not Reportable Neutrophils % (Manual) Band Neutrophils % Lymphocytes % (Manual) Monocytes % (Manual) Eosinophils % (Manual) Basophils % (Manual) Metamyelocytes % Myelocytes % Promyelocytes % Blast Cells % Plasma Cell % (Manual) Other Cells % Lymphocytes # Nucleated RBCs/100 WBC Differential Comment Diff Path Review Hypersegmented Neuts Atypical Lymphocytes Reactive Lymphocytes Smudge Cells Eosinophilia # Basophilia # Toxic Granulation Dohle Bodies Felicia Rods Platelet Estimate Plt Morphology Comment RBC Morphology Polychromasia Hypochromasia Poikilocytosis Basophilic Stippling Anisocytosis Microcytosis Macrocytosis Spherocytes Sickle Cells Target Cells Tear Drop Cells Ovalocytes Stomatocytes [place] Bodies [place] Cells Bite Cells Acanthocytes (Spur) Rouleaux Schistocytes PT 13.9 INR 1.1 APTT 28.1 Sodium Potassium Chloride Carbon Dioxide Anion Gap BUN Creatinine Estim Creat Clear Calc Est GFR (MDRD) Af Amer Est GFR (MDRD) Non-Af BUN/Creatinine Ratio Glucose Hemoglobin A1c 6.1 Calcium Troponin I Triglycerides Cholesterol LDL Cholesterol VLDL Cholesterol HDL Cholesterol TSH Discharge Diet: 1800 Calorie Control Diet Discharge Activity: Return to Normal Activity Home Medications: Medications to take at Discharge Atenolol [Tenormin (beta donaldo)] 25 mg PO DAILY 11/26/16 Lisinopril [Zestril] 40 mg PO BID 11/26/16 Omeprazole [Prilosec] 40 mg PO DAILY 11/26/16 Tamsulosin HCl [Flomax] 0.4 mg PO DAILY 11/26/16 Acetaminophen [Tylenol] 500 - 1,000 mg PO Q6H PRN PRN 12/09/18 Ammonium Lactate [Skin Treatment] 1 applic TP DAILY 12/09/18 Meloxicam 15 mg PO DAILY 12/09/18 Metformin HCl 500 mg PO DAILY 12/09/18 Amlodipine [Norvasc] 10 mg PO DAILY #60 tablet 12/10/18 Following Prescrptions Were Given to Patient: Amlodipine [Norvasc] 10 mg PO DAILY #60 tablet Primary Care Physician: Qasim Ellis MD [Primary Care Provider] - Please follow up with your Primary Care Physician in: in 5-7 days Patient Instructions: ED Chest Pain NonCardiac Disposition: Home Minutes spent on discharge:: 35 Patient Condition:: Stable Medical Necessity - Tobacco Use Smoking Status: Never smoker Meaningful Use Info Meaningful Use Diagnoses (Choose all that apply): None applicable Code Visit OBSV E&M: 42036 Observation care discharge
== END 2018-12-10 10:04 | disposition home or self-care (01) ==
LOC: ED 13:29 → PCU 14:49
PROVIDERS: Admitting Provider Internal Medicine; Emergency Provider Emergency Medicine; Family Provider Family Medicine; PCP Family Medicine; Visit Provider Internal Medicine
DX: R07.89 Other chest pain (principal); I10 Essential (primary) hypertension; K21.9 Gastro-esophageal reflux disease without esophagitis; R73.03 Prediabetes; Z79.899 Other long term (current) drug therapy; Z79.84 Long term (current) use of oral hypoglycemic drugs; M25.512 Pain in left shoulder; R00.1 Bradycardia, unspecified; G89.29 Other chronic pain; E66.9 Obesity, unspecified; Z68.31 Body mass index [BMI] 31.0-31.9, adult; Z71.3 Dietary counseling and surveillance
CPT/HCPCS: 36415; 71045; 78452; 80048; 80061; 83036; 84443; 84484; 85025; 85610; 85730; 93005; 93017; 96361; 96372; 96374; 99218; 99285; A9500; A4216; G0378; J2785

== ENCOUNTER 2020-06-04 10:13 | Emergency (ER) | payer MEDICAID, SELFPAY ==
[2018-12-09 15:13] VITALS: BMI 31.1
[2020-06-04 10:14] VITALS: BP 155/99; PULSE 55; RESP 14; TEMP 36.6; O2SAT 98; BMI 30.1
[2020-06-04 10:17] VITALS: BP 155/99; PULSE 55; RESP 14; TEMP 36.6; O2SAT 98
--- NOTE | 2020-06-04 10:21 | EKG12_ITS ---
Test Reason : CP Blood Pressure : / mmHG Vent. Rate : 055 BPM Atrial Rate : 055 BPM P-R Int : 144 ms QRS Dur : 100 ms QT Int : 410 ms P-R-T Axes : 024 068 043 degrees QTc Int : 392 ms Sinus bradycardia Otherwise normal ECG Confirmed by VALERY GARCIA, ALDO ([id number]), film and video editor BALDEMAR ARREAGA ([id number]) on 06/09/2020 10:13:42 AM Referred By: Confirmed By:ALDO RASMUSSEN MD
[2020-06-04 10:23] VITALS: O2SAT 97
[2020-06-04] MEDS: Ondansetron 4 MG/2 ML Vial IV (10:31)
[2020-06-04] MEDS: 0.9% Normal Saline 1,000 ML 1000 ML IV (10:31)
[2020-06-04] MEDS: Aspirin 81 MG TAB.CHEW 324 MG PO (10:32)
[2020-06-04 10:33] LABS: Absolute Lymphocyte Count 1.61 X10^3/uL (0.83-4.51); Absolute Neutrophil Count 4.7 X10^3/uL (2.0-7.7); Basophil# 0.03 X10^3/uL; Basophil% 0.4 % (0-1); Eosinophil# 0.08 X10^3/uL; Eosinophils% 1.2 % (0-5); Hematocrit 45.1 % (40-54); Hemoglobin 14.4 g/dL (13.0-16.5); Lymphocyte # 1.61 X10^3/ul (4.0); Lymphocyte % 23.4 % (19-41); Mean Corp Hgb Conc 31.9 g/dL (32-36); Mean Corpuscular Hgb 25.1 pg (27.0-32.0); Mean Corpuscular Volume 78.7 fL (80-94); Mean Platelet Vol. 10.1 fl (6.2-12.0); Monocyte% 5.8 % (0-10); NRBC Flagged by Analyzer 0 % (0-5); Neutrophil # 4.73 X10^3/uL (2.7-7.7); Neutrophil % 68.9 % (47-70); Platelet Count 316 K/mm3 (150-450); RBC Distribution Width CV 15.2 % (11.6-14.6); RBC Distribution Width SD 42.6 fl (35.1-43.9); Red Blood Count 5.73 M/mm3 (4.6-6.2); White Blood Count 6.9 K/mm3 (4.4-11.0)
--- NOTE | 2020-06-04 10:45 | RAD_ITS ---
STUDY: X-RAY CHEST REASON FOR EXAM: Male, 60 years old. Chest pain TECHNIQUE: Single AP portable view of the chest. COMPARISON: Comparison is made with prior study dated 12/09/2018. FINDINGS: EKG electrodes are seen. Hyperinflation. There is no demonstrated pleural abnormality. Normal size heart. Normal mediastinum and shonna. Normal visualized pulmonary arteries. There is atherosclerotic tortuosity of the aortic arch and descending thoracic aorta. There are mild degenerative changes of the visualized thoracic spine. Normal visualized ribs, clavicles, and shoulders. There is no demonstrated abnormality of the visualized soft tissue structures of the upper abdomen. RAD/Chest 1 View (Portable) IMPRESSION: Hyperinflation. The lungs are clear. Electronically Signed: Meir Richardson, at 11:01 EDT , Service support ,
[2020-06-04 10:51] LABS: Anion Gap 9 (5-15); BUN 14 mg/dL (7-18); BUN/Creat Ratio 12.8 RATIO (10-20); Calcium,Total 8.9 mg/dL (8.5-10.1); Chloride 106 mmol/L (98-107); Creatinine, Serum 1.09 mg/dL (0.70-1.30); EST Glomerular Filtration Rate 74 mL/min (>60); Est Glom Filt Rate - Afr Amer 89 mL/min (>60); Estimated Creatinine Clearance 85.89 ml/min; Glucose 185 mg/dL (74-106); Potassium 3.8 mmol/L (3.5-5.1); Sodium Level 139 mmol/L (136-145)
[2020-06-04 11:15] VITALS: BP 110/67; PULSE 57; RESP 14; TEMP 36.8; O2SAT 96
--- NOTE | 2020-06-04 11:18 | ED.VIS.CHEST ---
History of Present Illness Informant: Patient Onset: Days - 2 days Activity at onset: Rest Timing: Continuous Quality: Sharp, Stabbing, Tightness Location: Substernal Current Severity: Mild Maximum Severity: Mild Worsened By: Nothing Relieved By: Nothing Associated Symptoms: Lightheadedness. Negative for: Nausea, Vomiting, Diaphoresis, Dyspnea, Cough, Fever, Acid Reflux, Palpitations Narrative: 60-year-old male presents to the emergency department with chest pain. He has had 2 days of chest pain. Is been constant. It is sharp and stabbing and tight in his chest. Pain is substernal. It does not radiate. Nothing makes it better or worse. He has not had shortness of breath. He has not had any diaphoresis nausea or vomiting. No leg pain or swelling or hemoptysis. No fevers or cough. No abdominal pain or back pain. No neck pain. No dizziness. No recent travel or surgery or history of DVT or PE. He had a negative stress test 1 year ago. He has not had any exertional symptoms and he states he cut his grass last night with no worsening of his symptoms he did not have any chest pain he was not diaphoretic he is not short of breath. Prior Similar Symptoms: Yes Recent Illness/Hospitalization: No CVD Risk Factors: Hypertension, Diabetes, Hypercholesterolemia. Negative for: Family History 1' </=55, Smoking PE Risk Factors: Negative for: Recent Travel/Surgery, Recenet Immobilization, Prior DVT or PE, Cancer, OCP + Smoking + >/=35 TAD Risk Factors: Hypertension. Negative for: Marfan's Syndrome, Family History <Fabián Alvarenga - Last Filed: 06/04/20 11:51> <Qasim Ovalle - Last Filed: 06/04/20 14:58> Chief Complaint: Chest Pain Past Medical History Prior records reviewed: Yes Past Medical History: - - HTN and T2DM Surgical History: no surgical history Lives: With Family Smoking Status: Never smoker Alcohol: Occasional Drugs: Marijuana - Family History Paternal Family History: Reports: - - Denies heart attack/MS in first-degree family relative. MS in paternal uncle <Fabián Alvarenga - Last Filed: 06/04/20 11:51> <Qasim Ovalle - Last Filed: 06/04/20 14:58> - Allergies and Home Meds Allergies/Adverse Reactions: Allergies No Known Allergies Allergy (Verified 06/04/20 10:16) Primary Care Physician: Qasim Ellis MD [Primary Care Provider] - 3-5 Days Review of Systems All systems negative except as indicated General: Denies: Chills, Fever, Sweats Eyes: Denies: Visual changes - bilaterally, Diplopia ENT: Denies: Rhinorrhea, Sore throat Cardiovascular: Reports: Chest pain. Denies: Palpitations, Heart racing Respiratory: Denies: Dyspnea, Cough, Dyspnea on exertion Gastrointestinal: Denies: Abdominal pain, Nausea, Vomiting, Diarrhea, Melena, Hematochezia Genitourinary: Denies: Dysuria, Hematuria, Frequency Musculoskeletal: Denies: Back pain, Extremity Pain Skin: Denies: Rash, Wounds Neurological: Denies: Headache, Weakness, Numbness <Fabián Alvarenga - Last Filed: 06/04/20 11:51> Physical Exam Vital Signs/Narrative: Vital Signs Temp Pulse Resp BP Pulse Ox 06/04/20 10:23 97 06/04/20 10:17 97.8 F 55 L 14 155/99 H 98 06/04/20 10:14 97.8 F 55 L 14 155/99 H 98 Inital Vital Signs reviewed: Yes General: Well nourished, Well developed, No Acute Distress Head: Normocephalic, Atraumatic Eyes: Perrl, EOMI ENT: Moist mucous membranes, No rhinorrhea Neck: Supple, Nontender Cardiovascular: Regular rate, Regular rhythm, No murmurs Respiratory: No distress, CTA bilaterally, Chest nontender Abdomen: Soft, Nontender, Nondistended, Normal bowel sounds Back: Nontender, Normal Inspection Extremities: Nontender, No edema. Negative for: Tenderness, Edema, Calf Tenderness Skin: Normal color, No rash Neurological: Alert, Oriented x3, Cranial nerves II-XII grossly intact, Normal Strength, Normal Sensation Psychological: Normal affect, Normal Mood <Fabián Alvarenga Last Filed: 06/04/20 11:51> Vital Signs/Narrative: Vital Signs Temp Pulse Resp BP Pulse Ox 06/04/20 11:19 98.2 F 57 L 14 110/67 96 06/04/20 11:15 98.2 F 57 L 14 110/67 96 06/04/20 10:23 97 06/04/20 10:17 97.8 F 55 L 14 155/99 H 98 06/04/20 10:14 97.8 F 55 L 14 155/99 H 98 <Qasim Ovalle - Last Filed: 06/04/20 14:58> Diagnostic/Tx/Re-eval Chest X-Ray - ED: 1 View, Read by ED Physician, Read by Radiologist, No Acute Disease - Rhythm Strip Rhythm Strip: Sinus Rhythm Rate: 55 Ectopy: None - EKG Initial EKG Interpretation: Sinus Rhythm, No Acute Injury Pattern Prior: Unchanged Treatment: Aspirin Repeat Eval: Pain Free WESTLEY Risk: No Positive WESTLEY Elements Score: 0 - Medical Decision Making EKG was sinus rhythm no signs of ischemia. Patient given aspirin and Zofran and fluids. CBC BMP and troponin unremarkable. Chest x-ray unremarkable. Patient is chest pain-free. He has had pain for more than 2 days consistently. His heart score is 3. We do not feel he needs repeat troponin testing he is agreeable with plan of not having a repeat troponin at this time he does endorse being extremely anxious and having a lot of stress in his life because he is concerned he may lose his job. He will be discharged home. He did have a negative stress test a year ago he will follow-up with his doctor for outpatient stress testing or return for worsening symptoms which we discussed <Fabián Alvarenga - Last Filed: 06/04/20 11:51> - Medical Decision Making Patient was seen with me. I did a [id number] examination with the patient. Patient presents with chest pain that has been constant for the past couple days. Patient states that he was able to mow his lawn yesterday with no pain in his chest. Patient states the pain is over the upper chest. Patient denies any radiation of the pain. Patient denies any diaphoresis. Patient denies any shortness of breath. Vital signs are stable. Patient is afebrile. Patient is in no acute distress. Oral mucosa is pink and moist. Neck is supple. Trachea is midline. There is no JVD noted. Heart was regular rate and rhythm. Lungs are clear and equal bilaterally. Abdomen is soft. Bowel sounds are normal. There is no tenderness. There is no rebound or guarding noted. Skin is warm dry. Cranial nerves II through XII are intact. There are no focal motor or sensory deficits noted. Extremities are intact. There is no calf tenderness or edema. EKG showed normal sinus rhythm. There are no signs of ischemia noted. CBC, basic metabolic profile, troponin were obtained were within normal limits. Chest x-ray was obtained. There is no acute cardiopulmonary process. With his pain being constant for 2 days and a normal troponin, I do not feel this is cardiac in nature. Patient has a HEART score of 3. Patient was advised that this is low risk for acute cardiac event. Patient was instructed to follow-up with his primary care physician in 5 to 7 days for further evaluation. Patient understood and was agreeable with the plan. All questions were answered. <Qasim Ovalle - Last Filed: 06/04/20 14:58> ED Disposition <Fabián Alvarenga - Last Filed: 06/04/20 11:51> <Qasim Ovalle - Last Filed: 06/04/20 14:58> - Plan for ED Patient: Disposition: Home or Assisted Living Diagnosis: Chest pain, Gastro-esophageal reflux, HTN (hypertension), Borderline type 2 diabetes mellitus Instructions: ED Chest Pain Atypical Unkn Cause Referrals: Qasim Ellis MD [Primary Care Provider] - 3-5 Days
[2020-06-04 11:19] VITALS: BP 110/67; PULSE 57; RESP 14; TEMP 36.8; O2SAT 96
[2020-06-04 12:00] VITALS: BP 135/84; PULSE 47; RESP 14; TEMP 36.8; O2SAT 96
== END 2020-06-04 12:03 | disposition home or self-care (01) ==
PROVIDERS: Emergency Provider Physician Assistant Medical; PCP Family Medicine
DX: R07.9 Chest pain, unspecified (principal); K21.9 Gastro-esophageal reflux disease without esophagitis; I10 Essential (primary) hypertension; E11.9 Type 2 diabetes mellitus without complications; E78.00 Pure hypercholesterolemia, unspecified; Z82.49 Family history of ischemic heart disease and other diseases of the circulatory system
CPT/HCPCS: 71045; 80048; 84484; 85025; 93005; 96361; 96374; 99285; J7030; J2405

== ENCOUNTER → 2020-08-11 17:28 | Outpatient (CLI) | payer MEDICAID, SELFPAY | PROVIDERS: PCP Family Medicine; Referring Provider Family Medicine; Visit Provider Family Medicine | DX: Z20.828 Contact with and (suspected) exposure to other viral communicable diseases (principal) | CPT/HCPCS: 87635; U0003 ==

== ENCOUNTER 2021-03-12 04:13 | Emergency (ER) | payer OTHER, MEDICAID, SELFPAY ==
[2021-03-12 04:14] VITALS: BP 167/91; PULSE 65; RESP 18; TEMP 35.8; O2SAT 97; BMI 30.7
--- NOTE | 2021-03-12 04:40 | CT_ITS ---
STUDY: CT ABDOMEN AND PELVIS WITHOUT CONTRAST REASON FOR EXAM: Male, 61 years old. Kidney Stone RADIATION DOSAGE (If Supplied By Facility): CTDIvol = ( 12.21 ) mGy, DLP = ( 937.78 ) mGycm TECHNIQUE: Transaxial images were obtained from the dome of the diaphragm to the symphysis pubis without oral contrast, and without intravenous contrast. Sagittal and coronal images were reconstructed. Individualized dose optimization techniques were used for this CT. COMPARISON: 04/24/2019 FINDINGS: The visualized lung bases are unremarkable. The visualized portions of the heart are within normal limits. Normal liver. Normal gallbladder and extrahepatic biliary system. Normal spleen. Normal pancreas. Normal bilateral adrenal glands. Normal right kidney. Normal left kidney. Stable small left renal cyst Normal visualized stomach. Normal small intestine. Normal colon. The appendix is visualized and appears normal. Normal abdominal aorta. Normal inferior vena cava. Normal retroperitoneum. Normal urinary bladder. There are prostatic calcifications. Normal abdominal wall. Normal osseous structures. CT/Abdomen/Pelvis without Cont IMPRESSION: No evidence of renal obstruction or urolithiasis. Small and stable left renal cysts. Unremarkable appendix. Electronically Signed: Markus Mai DO at 6:21 EDT Tel , Service support ,
--- NOTE | 2021-03-12 04:41 | EDS_ITS ---
HPI History of Present Illness Chief Complaint: Complaint Informant: patient Pain Onset: Hours (1) Context: Sudden Onset (Woke him up from sleep) Timing: Continuous Current Severity: Moderate Maximum Severity: Severe Worsened by: Nothing in particular Relieved by: See below Narrative Narrative: Patient had scrotal pain that started around 2 weeks ago he saw his doctor and was diagnosed with right epididymitis and placed on Bactrim for 2 weeks. He states symptoms seem to improve, and over the last several days since the antibiotics having gone he has been gradually seeming to be getting worse, his doctor called in a refill for the Bactrim but he has not started it yet. He woke up this morning in a lot of pain in his scrotum but more on the left testicle, and he was sweating unknown if this was a fever or not. It is calm down now. He states he ejaculated 2 days ago but he cannot think of anything else different. He denies pain going into his back. He has a burning sensation into his penis and suprapubic area. He was nauseated earlier that is still present but not as bad. He denies burning dysuria states that sometimes actually feels better when he urinates. He is also requesting to be checked for sexually transmitted infection. [facility] Medical History Diabetes Hypertension Home Medications Omeprazole [Prilosec] 40 mg PO DAILY 11/26/16 [History Last Taken 12/09/18] atenolol 25 mg PO DAILY 11/26/16 [History Last Taken 12/09/18] lisinopril 40 mg PO BID 11/26/16 [History Last Taken 12/09/18] tamsulosin 0.4 mg PO DAILY 11/26/16 [History Last Taken 12/08/18] acetaminophen 500 - 1,000 mg PO Q6H PRN PRN 12/09/18 [History Last Taken Unknown] ammonium lactate [Skin Treatment] 1 applic TP DAILY 12/09/18 [History Last Taken 12/09/18] metformin 500 mg PO DAILY 12/09/18 [History Last Taken 12/09/18] amlodipine 10 mg PO DAILY #60 tablet 12/10/18 [Rx Last Taken Unknown] doxycycline hyclate 100 mg PO BID #14 tab 03/12/21 [Rx Last Taken Unknown] Allergy/AdvReac Type Severity Reaction Status Date / Time No Known Allergies Allergy Verified 06/04/20 10:16 Social History Smoking Status: Never smoker ROS ROS ED Constitutional Constitutional ED: Denies chills or fever(s) Eyes Eyes: Denies change in vision or diplopia ENT ENT ED: Denies rhinorrhea or sore throat Cardiovascular Cardiovascular: Denies chest pain or palpitations Respiratory/Chest Respiratory/Chest: Denies cough or dyspnea Gastrointestinal Gastrointestinal: Denies diarrhea or vomiting Genitourinary Genitourinary ED: Reports as per HPI, scrotal pain and other Details: Burning in penis ; Denies dysuria or hematuria Musculoskeletal Musculoskeletal: Denies back pain or neck pain Integumentary Denies abscess or rash Neurologic Neurologic: Denies headache(s), paresthesias or weakness Psychiatric Psychiatric: Denies anxiety or suicidal thoughts EXAM Physical Exam Const Vital Signs: 03/12/21 04:14 Temperature 96.5 F L Temperature Source Temporal Pulse Rate 65 Respiratory Rate 18 Blood Pressure 167/91 H Blood Pressure Mean 116 Pulse Ox 97 Oxygen Delivery Method Room Air Positive well nourished and well developed General Appearance ED: well developed and NAD HEENT Reports moist mucous membranes normocephalic and atraumatic Eyes PERRL and EOMs intact bilaterally Neck full ROM and supple Resp normal respiratory effort and clear to auscultation bilaterally Cardio regular rate, regular rhythm and no murmurs GI non-tender and non-distended Auscultation: normoactive bowel sounds Palpation: soft no CVA tenderness, external exam normal, testes normal, scrotum normal, no scrotal swelling and no hernias present Narrative: Examined while standing. No testicular or epididymal tenderness bilaterally. No blue dot sign. Normal testicular lie bilaterally. No discharge from urethral meatus present. Back/Spine no CVA tenderness General Back: other FROM Extremity normal to inspection General Extremety ED: Negative for edema, pulses abnormal or tenderness General Extremity: Negative for edema or pulses abnormal Neuro oriented x3, CN's II-XII intact bilaterally and no sensory deficits noted Sensorium / Orientation: awake and alert Motor Exam: strength 5/5 throughout Skin no rashes or lesions noted and no wounds MDM MDM MDM Narrative Medical decision making narrative: Differential includes ureterolithiasis/renal/ureteral colic, I obtain a CT it is negative for anything acute including stones. His urine shows no infection. I did send a GC/chlamydia at the patient's request to screen for STI, that is pending and will not come back. He is wondering if a different antibiotic would help. My answer is that that is unknown; he does not have clinical evidence of orchitis or epididymitis at this time but patient presents at a time when ultrasound is not available. He states it is weird; it hurts more some mornings and more some nights when he lies down as it did tonight, waking him up. I do not think this is torsion. It is possible that this could be something to do with his prostate. I am happy to treat him with doxycycline instead of the new prescription for Bactrim with empiric treatment for chlamydia, and he should follow-up with the physician that examined him initially. I did discuss the minor PATITO, and need to have this checked in the future. He is comfortable with this overall plan. He was given Toradol here which significantly helped with his discomfort. Lab Data Attestation: I reviewed the patient's lab results. Labs: Laboratory Results - last 24 hr 03/12/21 03/12/21 03/12/21 04:50 04:50 05:05 WBC 5.8 RBC 5.43 Hgb 14.2 Hct 43.8 MCV 80.7 MCH 26.2 L MCHC 32.4 RDW Std Deviation 44.6 H RDW Coeff of Elvis 15.3 H Plt Count 261 MPV 10.0 Immature Gran % (Auto) 0.200 Neut % (Auto) 62.8 Lymph % (Auto) 26.8 [place] % (Auto) 8.7 Eos % (Auto) 1.2 Baso % (Auto) 0.3 Absolute Neuts (auto) 3.6 Absolute Lymphs (auto) 1.55 Nucleated RBC % 0 Sodium 137 Potassium 3.9 Chloride 103 Carbon Dioxide 26.0 Anion Gap 8 BUN 19 H Creatinine 1.54 H Estim Creat Clear Calc 61.73 Est GFR (MDRD) Af Amer 60 Est GFR (MDRD) Non-Af 49 L BUN/Creatinine Ratio 12.3 Glucose 125 H Calcium 9.4 Urine Color Yellow Urine Clarity Clear Urine pH 6.0 Ur Specific [place] 1.020 Urine Protein Negative Urine Glucose (UA) Normal Urine Ketones Negative Urine Occult Blood Negative Urine Nitrite Negative Urine Bilirubin Negative Urine Urobilinogen Normal Ur Leukocyte Esterase Negative Urine RBC 0 SEEN Urine WBC 0 SEEN Ur Squamous Epith Cells 0-5 SEEN Urine Bacteria 0 SEEN Urine Mucus 0 SEEN Radiography Diagnostic Testing: Radiology Impression Abdomen/Pelvis CT 03/12/21 04:40 IMPRESSION: No evidence of renal obstruction or urolithiasis. Small and stable left renal cysts. Unremarkable appendix. Electronically Signed: Markus AbreuDO adrian at 6:21 EDT Tel , Service support , Discharge Plan Triage Chief Complaint: Complaint ED Provider: Miguel Angel Ch Dx/Rx/DC Orders Clinical Impression: Acute pain in scrotum Instructions: ED Testicular Pain, Unclear Cause Prescriptions: New doxycycline hyclate 100 mg tablet 100 mg PO BID Qty: 14 RF: 0 No Action atenolol 25 MG tablet 25 mg PO DAILY RF: 0 tamsulosin 0.4 MG capsule 0.4 mg PO DAILY RF: 0 lisinopril 40 MG tablet 40 mg PO BID RF: 0 Omeprazole [Prilosec] 40 MG capsule 40 mg PO DAILY RF: 0 metformin 500 MG tablet 500 mg PO DAILY RF: 0 ammonium lactate [Skin Treatment] 400 GM lotion 1 applic TP DAILY RF: 0 acetaminophen 500 MG tablet 500 - 1,000 mg PO Q6H PRN PRN (Reason: Pain) RF: 0 amlodipine 10 MG tablet 10 mg PO DAILY Qty: 60 RF: 0 Primary Care Provider: Qasim Ellis Referrals: Qasim Ellis MD [Primary Care Provider] - 3-5 Days if not improving Disposition Disposition: Home, self care
[2021-03-12 04:55] LABS: Absolute Lymphocyte Count 1.55 X10^3/uL (0.83-4.51); Absolute Neutrophil Count 3.6 X10^3/uL (2.0-7.7); Basophil# 0.02 X10^3/uL; Basophil% 0.3 % (0-1); Eosinophil# 0.07 X10^3/uL; Eosinophils% 1.2 % (0-5); Hematocrit 43.8 % (40-54); Hemoglobin 14.2 g/dL (13.0-16.5); Lymphocyte # 1.55 X10^3/ul (0.83-4.51); Lymphocyte % 26.8 % (19-41); Mean Corp Hgb Conc 32.4 g/dL (32-36); Mean Corpuscular Hgb 26.2 pg (27.0-32.0); Mean Corpuscular Volume 80.7 fL (80-94); Monocyte% 8.7 % (0-10); NRBC Flagged by Analyzer 0 % (0-5); Neutrophil # 3.63 X10^3/uL (2.7-7.7); Neutrophil % 62.8 % (47-70); Platelet Count 261 K/mm3 (150-450); RBC Distribution Width CV 15.3 % (11.6-14.6); RBC Distribution Width SD 44.6 fl (35.1-43.9); Red Blood Count 5.43 M/mm3 (4.6-6.2); White Blood Count 5.8 K/mm3 (4.4-11.0)
[2021-03-12 05:10] LABS: Anion Gap 8 (5-15); BUN 19 mg/dL (7-18); BUN/Creat Ratio 12.3 RATIO (10-20); Calcium,Total 9.4 mg/dL (8.5-10.1); Chloride 103 mmol/L (98-107); Creatinine, Serum 1.54 mg/dL (0.70-1.30); EST Glomerular Filtration Rate 49 mL/min (>60); Est Glom Filt Rate - Afr Amer 60 mL/min (>60); Estimated Creatinine Clearance 61.73 ml/min; Glucose 125 mg/dL (74-106); Potassium 3.9 mmol/L (3.5-5.1); Sodium Level 137 mmol/L (136-145)
[2021-03-12 05:10] LABS: Bacteria 0 SEEN /hpf (None Seen); Color, Urine Yellow (Yellow); Glucose, Dipstick Normal (Normal); Ketone-Dipstick Negative (Negative); Leukocyte Esterase-Dipstick Negative /ul (Negative); Mucous, Urine 0 SEEN /hpf (<or=2+); Nitrite-Dipstick Negative (Negative); Occult Blood-Urine Negative /ul (Negative); Protein-Dipstick Negative (Negative); Red Blood Cells-Urine 0 SEEN /hpf (0-5); Urine Bilirubin Dipstick Negative (Negative); Urine Clarity Clear (Clear); Urine Urobilinogen Normal (Normal); White Blood Cells 0 SEEN /hpf (0-5)
[2021-03-12] MEDS: Ketorolac 15 MG/ML Vial IV (05:14)
[2021-03-12] MEDS: Ondansetron 4 MG/2 ML Vial IV (05:14)
[2021-03-12 05:22] LABS: Squamous Epithelial Cells - UA 0-5 SEEN /hpf (0-5)
[2021-03-12 06:52] VITALS: BP 137/58; PULSE 57; RESP 16; O2SAT 91
[2021-03-12 07:02] LABS: Chlamydia Trachomatis by PCR Negative (Negative); Neisserai gonorrhoeae by PCR Negative (Negative); Probe Check PASS; Sample Adequacy Control PASS; Specimen Processing Control PASS
[2021-03-12 07:35] VITALS: BP 114/85; PULSE 75; RESP 16; O2SAT 99
== END 2021-03-12 07:36 | disposition home or self-care (01) ==
PROVIDERS: Emergency Provider Emergency Medicine; PCP Family Medicine
DX: N50.82 Scrotal pain (principal); E11.9 Type 2 diabetes mellitus without complications; I10 Essential (primary) hypertension; N28.1 Cyst of kidney, acquired
CPT/HCPCS: 36415; 74176; 80048; 81001; 85025; 87491; 87591; 96374; 96375; 99283; A4216; J2405

== ENCOUNTER → 2021-03-17 15:56 | Outpatient (CLI) | payer OTHER, MEDICAID, SELFPAY ==
[2021-03-12 04:14] VITALS: BMI 30.7
--- NOTE | 2021-03-17 16:00 | US_ITS ---
STUDY: SCROTUM ULTRASOUND REASON FOR EXAM: Male, 61 years old. TESTICULAR DISCOMFORT TECHNIQUE: Ultrasound evaluation of the scrotum was performed with color Doppler and static olivarez-scale imaging. COMPARISON: None. FINDINGS: RIGHT TESTICLE INTRATESTICULAR: There is a normal size of the right testicle. The right testicle measures 5.0 x 3.2 x 2.7 cm. There is a homogenous echotexture. Incidental testicular cyst measuring 4 mm. There is normal arterial and normal venous vascularity. There is no demonstrated right testicular mass or cyst. EXTRATESTICULAR: The epididymis is normal in size. The epididymis head measures 1.2 cm. There is normal vascularity of the epididymis. There is a 4 mm epididymal cyst. There is a small hydrocele. There is no demonstrated varicocele. There is no demonstrated extratesticular mass or cyst. LEFT TESTICLE INTRATESTICULAR: There is a normal size of the left testicle. The left testicle measures 5.0 x 3.0 x 3.1 cm. There is a homogenous echotexture. There is normal arterial and normal venous vascularity. There is no demonstrated left testicular mass or cyst. EXTRATESTICULAR: The epididymis is normal in size. The epididymis head measures 1.4 cm. There is normal vascularity of the epididymis. There is no demonstrated epididymal cystic structure. There is a small hydrocele. There is no demonstrated varicocele. There is no demonstrated extratesticular mass or cyst. US/Testicular with Arterial Flow IMPRESSION: Normal bilateral testicles. Bilateral small hydroceles. Electronically Signed: Larry De La Fuente MD at 21:56 EDT , Service support ,
== END ==
PROVIDERS: PCP Family Medicine; Referring Provider Family Medicine; Visit Provider Family Medicine
DX: N50.819 Testicular pain, unspecified (principal)
CPT/HCPCS: 76870; 93976

== ENCOUNTER → 2021-07-06 18:02 | Outpatient (CLI) | payer OTHER, MEDICAID, SELFPAY | PROVIDERS: PCP Family Medicine; Referring Provider Nurse Practitioner Family; Visit Provider Nurse Practitioner Family | DX: U07.1 COVID-19 (principal); Z20.822 Contact with and (suspected) exposure to COVID-19 | CPT/HCPCS: 87635; U0005; U0003 ==

== ENCOUNTER 2021-07-08 11:27 | Outpatient (CLI) | payer OTHER, MEDICAID, SELFPAY ==
[2021-07-08 11:56] VITALS: BP 113/78; PULSE 71; RESP 16; TEMP 36.6; O2SAT 96; BMI 30.6
[2021-07-08] MEDS: 0.9% Saline Lock 10 ML Syringe IV (12:02)
[2021-07-08 12:37] VITALS: BP 108/66; PULSE 62; RESP 16; TEMP 37.2; O2SAT 96
[2021-07-08 13:37] VITALS: BP 101/85; PULSE 59; RESP 16; TEMP 36.6; O2SAT 96
== END 2021-07-08 13:37 | disposition home or self-care (01) ==
LOC: MS3OUT 11:27 → MS3 11:28
PROVIDERS: PCP Family Medicine; Referring Provider Nurse Practitioner Adult Health; Visit Provider Nurse Practitioner Adult Health
DX: Z23 Encounter for immunization (principal); U07.1 COVID-19
CPT/HCPCS: J7050; M0243; A4216; Q0240

== ENCOUNTER → 2021-07-26 15:42 | Outpatient (CLI) | payer OTHER, MEDICAID, SELFPAY ==
[2021-07-26 17:40] LABS: Hematocrit 45.2 % (40-54); Hemoglobin 14.7 g/dL (13.0-16.5); Mean Corp Hgb Conc 32.5 g/dL (32-36); Mean Corpuscular Hgb 26.6 pg (27.0-32.0); Mean Corpuscular Volume 81.7 fL (80-94); Mean Platelet Vol. 10.9 fl (6.2-12.0); Platelet Count 426 K/mm3 (150-450); RBC Distribution Width CV 14.5 % (11.6-14.6); RBC Distribution Width SD 42.9 fl (35.1-43.9); Red Blood Count 5.53 M/mm3 (4.6-6.2); White Blood Count 5.3 K/mm3 (4.4-11.0)
[2021-07-26 17:52] LABS: Erythrocyte Sedimentation Rate 26 mm/hr (0-20)
[2021-07-26 18:26] LABS: ALB/GLOB Ratio 0.9 RATIO (0.9-2.4); AST(SGOT) 23 U/L (15-37); Alanine Aminotransfer ALT/SGPT 55 U/L (16-61); Albumin, Serum 3.7 g/dL (3.2-5.0); Alkaline Phosphatase 79 U/L (45-117); Anion Gap 9 (5-15); BUN 12 mg/dL (7-18); BUN/Creat Ratio 12.9 RATIO (10-20); Chloride 105 mmol/L (98-107); Creatinine, Serum 0.93 mg/dL (0.70-1.30); EST Glomerular Filtration Rate 88 mL/min (>60); Est Glom Filt Rate - Afr Amer 106 mL/min (>60); Globulin 4.3 g/dL (2.2-4.2); Glucose 121 mg/dL (74-106); Potassium 3.6 mmol/L (3.5-5.1); Sodium Level 139 mmol/L (136-145); Thyroid Stim Hormone (TSH) 0.73 uIU/mL (0.358-3.74)
== END ==
PROVIDERS: PCP Family Medicine; Referring Provider Family Medicine; Visit Provider Family Medicine
DX: R53.83 Other fatigue (principal)
CPT/HCPCS: 36415; 80053; 84443; 85027; 85652

== ENCOUNTER 2021-09-08 17:00 | Outpatient (RCR) | payer OTHER, MEDICAID, SELFPAY ==
--- NOTE | 2021-08-12 07:13 | HP.PTEVAL ---
Patient's Visit Information SARBJIT SHARP II is a 61 year old M referred to Physical Therapy by Dr. Qasim Ellis MD with a diagnosis of COVID-19. Date of Evaluation: 08/11/21 Physical Therapist: Vanessa Burch DPT - Visit Plan Frequency: 2x /Week Duration: 4 Weeks Plan: Focus on LE and core strength/stabilization and endurance s/p COVID- return to work activities. - Subjective First week of July he has COVID- really sick for 2.5 weeks and he feels he has not felt right. Went back to MD due to continued fatigue, lightheaded and woozy. He gets winded from carrying a laundry basket upstairs or doing leaves. The symptoms are inconsistent. Sometimes he good and sometimes they are bad. He gets headaches all the time but those have been getting better. Has not been back to work yet. 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 40 hours a week- does not have a return to work date. Does still have to nap during the day due to not sleeping well at night. Has had some tightness in his chest when he was mowing but once he sat it subsided. Has not done a lot of strenuous activities since two weeks ago. Did not have an exercise regime prior to COVID. PMHx: HTN, DM, Metformin: metformin, lisinopril, amlodapine, atenalol, omperazol - Objective Posture: FH, RS- can correct with verbal and tactile cues but does not maintain. Gait: no deviation noted- see 6 min walk test for endurance. Stairs: asc/desc 8 recip with 1 HR fair form. HR/TR: able. SLS: 5 sec then LOB. ROM: WFL in all planes. Strength: Core: fair, Hip: 4/5, Knee:4+/5, Ankle: 5/5 - Balance/Special Test Scores Lower Extremity Functional Score: 52 TUG Test Time Seconds: 6.44 30 Second Chair Rise Test Seconds: 11 6 Minute Walk Test: 412.09 meters - Goals Goal 1:: Patient will be I with HEP and progression Goal Time Frame: 4-6 Weeks Goal 2:: Patient will perform 17 sit to stands in 30 sec without UE A Goal Time Frame: 4-6 Weeks Goal 3:: Patient will perform all return to work activities without SOB Goal Time Frame: 4-6 Weeks - Rehabilitation Potential Physical Therapy Diagnosis: Patient presents with hypomobility s/p COVID. Patient has decreased LE and core strength/stabilization and muscular endurance leading to decreased ability to perform ADL's. Rehabilitation Potential: Good - Anticipated Interventions Patient/Client Instruction: Educate patient on: Benefits of Fitness Program Therapeutic Exercise to Include: Strength training, Endurance training, Balance training, Coordination, Agility training, Body mechanics, Postural training, Flexibilty training, Gait and locomotor training, Neuromotor development, Dynamic Lumbar Stabilization, Scapular Strength/Stabilization For the Purpose of:: To improve muscle performance and motor function Thank you for the opportunity to evaluate your patient. For Medicare and Medicare HMO plans, please review the plan of care and approve it. It will need to be FAXED BACK to us at [phone] for Medicare purposes. For Medicare only, by signing this I certify the plan of care. Please let me know if there are questions or concerns regarding this plan of care. Physician Signature: Date:
--- NOTE | 2021-09-08 17:20 | HP.PTDCSUM ---
It has been my pleasure to treat SARBJIT SHARP II referred by Dr. Qasim Ellis MD, with the diagnosis of COVID-19 for a total of 9 visit(s). Discharge Date: Please see the following information for a summary of their discharge status. Subjective: Patient reports that he is doing much better. He had some chest pain last night after he did a lot of heavy work yesterday. He saw Dr. Ellis who ordered a echo and he has it next week. He wants to see if he has Pulmonary HTN or possibly has long haul COVID. Possibly would be a candidate for a heart cath. Back to work half days- times he is tired but other days he does just fine. 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 % Improvement: 80 Objective/Function: Posture: FH, RS- can correct with verbal and tactile cues but does not maintain. Gait: no deviation noted Stairs: asc/desc 8 recip with no HR. HR/TR: able. SLS: 15 sec then LOB. ROM: WFL in all planes. Strength: Core: fair, Hip: 5/5, Knee:5/5, Ankle: 5/5 Goal 1:: Patient will be I with HEP and progression Goal Progress: Goal Met Goal 2:: Patient will perform 17 sit to stands in 30 sec without UE A Goal Progress: Progressing Goal 3:: Patient will perform all return to work activities without SOB Goal Progress: Goal Met Plan: Discharge to I HEP and return to work If there are questions or concerns regarding this patient's physical therapy, please feel free to call me at [phone]. Thank you for the referral of this patient. Sincerely, Vanessa Burch, DPT Balance/Gait/Functional tests - Balance/Special Test Scores Lower Extremity Functional Score: 65 TUG Test Time Seconds: 6.44 Tug Test: <10 sec.=free mobile 30 Second Chair Rise Test Seconds: 15 6 Minute Walk Test: 412.09 meters
== END 2021-09-08 19:00 | disposition home or self-care (01) ==
LOC: PT 17:00
PROVIDERS: PCP Family Medicine; Referring Provider Family Medicine; Visit Provider Family Medicine
DX: Z02.79 Encounter for issue of other medical certificate (principal); Z86.16 Personal history of COVID-19
CPT/HCPCS: 97110; 97162; 97164

== ENCOUNTER → 2021-09-13 13:57 | Outpatient (CLI) | payer OTHER, MEDICAID, SELFPAY ==
--- NOTE | 2021-09-13 14:00 | ECHOCS_ITS ---
Reason For Study: SOB Procedure This was a 2D Doppler, Color Flow transthoracic echocardiogram. The study was technically difficult. Contrast injection was performed. Exam performed in department. Left Ventricle Normal LV size. Left ventricular systolic function is normal. The estimated ejection fraction is 65 %. Diastolic function is indeterminate. No regional wall motion abnormalities noted. Right Ventricle Normal RV size. Normal systolic function. Atria Normal left atrium. Normal right atrium. No doppler evidence for ASD. Mitral Valve There is no mitral annular calcification. Normal mitral valve. Mild (1+) eccentric mitral valve insufficiency. Tricuspid Valve Normal tricuspid valve. Trivial tricuspid valve insufficiency. Right ventricular systolic pressure estimated to be 40 mmHg. Aortic Valve Trisinus/trileaflet aortic valve. Normal aortic valve. Pulmonic Valve The pulmonic valve is not well visualized. Great Vessels Normal sized aortic root. Pericardium/Pleural No pericardial effusion. Medication 22 gauge I.V. with prn adaptor inserted into right arm. Diluted definity 3.0ml given slow IV push to enhance endocardial definition. MMode/2D Measurements & Calculations LVIDd: 4.1 cm IVSd: 0.78 cm Ao root diam: 3.8 cm LVIDs: 2.9 cm LVPWd: 0.82 cm RVDd: 3.6 cm FS: 29.1 % LAV(MOD-bp): 39.0 ml LVAd ap4: 38.0 cm2 LVAd ap2: 33.5 cm2 LAV(MOD-bp) Indexed: 16.5 ml/m2 LVLd ap4: 9.7 cm LVLd ap2: 9.3 cm LAV(MOD-sp2): 35.8 ml EDV(MOD-sp4): 122.7 ml EDV(MOD-sp2): 97.4 ml LAV(MOD-sp4): 35.2 ml EDV(sp4-el): 126.6 ml EDV(sp2-el): 102.3 ml LVAs ap4: 21.3 cm2 LVAs ap2: 18.7 cm2 LVLs ap4: 7.8 cm LVLs ap2: 7.4 cm ESV(MOD-sp4): 50.1 ml ESV(MOD-sp2): 40.1 ml ESV(sp4-el): 49.4 ml ESV(sp2-el): 40.0 ml EF(MOD-sp4): 59.2 % EF(MOD-sp2): 58.9 % EF(sp4-el): 61.0 % SV(MOD-sp4): 72.6 ml SV(MOD-sp2): 57.4 ml SV(sp4-el): 77.2 ml LA A4 area: 15.9 cm2 LA dimension(2D): 3.6 cm RA A4 area: 10.8 cm2 Doppler Measurements & Calculations MV E max rian: 93.7 cm/sec Lat Peak E' Rian: 9.4 cm/sec Med Peak E' Rian: 9.3 cm/sec MV A max rian: 82.9 cm/sec E/E' lat: 9.9 E/E' med: 10.1 MV E/A: 1.1 Ao V2 max: 186.2 cm/sec LV V1 max: 130.5 cm/sec TR max rian: 302.6 cm/sec Ao max P.9 mmHg LV V1 max P.8 mmHg TR max P.6 mmHg ECHO/Echo Complete W/ Contrast Interpretation Summary The study was technically difficult. Contrast injection was performed. Left ventricular systolic function is normal. The estimated ejection fraction is 65 %. Mild (1+) eccentric mitral valve insufficiency. Trivial tricuspid valve insufficiency. Right ventricular systolic pressure estimated to be 40 mmHg c/w pulmonary hyper tension. Diastolic function is indeterminate. Ordering Physician: Qasim Ellis Referring Physician: Qasim Ellis Performed By: Jennifer Terry, ANDREIA, RVT
== END ==
PROVIDERS: PCP Family Medicine; Referring Provider Family Medicine; Visit Provider Family Medicine
DX: R06.02 Shortness of breath (principal)
CPT/HCPCS: 93306; Q9957; A4216; C8929

== ENCOUNTER 2021-12-21 16:38 | Outpatient (CLI) | payer OTHER, MEDICAID, SELFPAY ==
--- NOTE | 2021-12-21 16:41 | RAD_ITS ---
STUDY: X-RAY - LEFT SHOULDER REASON FOR EXAM: Male, 61 years old patient with left-sided shoulder pain. TECHNIQUE: 4 view(s) of the shoulder. COMPARISON: None. FINDINGS: Normal glenohumeral articulation. There is degenerative arthrosis of the acromioclavicular joint without inferior osseous spur formation. Normal acromion. Normal humeral head and visualized proximal humerus. The soft tissue structures are unremarkable. There is no demonstrated fracture. The visualized left lung appears to be clear. RAD/Shoulder min 2 Views IMPRESSION: Mild degenerative arthropathy. Electronically Signed: Lexie Gomez MD at 2:28 EDT ,
--- NOTE | 2021-12-21 16:42 | RAD_ITS ---
STUDY: X-RAY - RIGHT KNEE REASON FOR EXAM: Male, 61 years old. PAIN TECHNIQUE: 3 view(s) of the knee. COMPARISON: None. FINDINGS: Normal visualized distal femur. Normal visualized proximal tibia and fibula. Normal proximal tibiofibular articulation. Normal medial femorotibial compartment. Normal lateral femorotibial compartment. Normal patellofemoral articulation. The soft tissue structures are unremarkable. RAD/Knee 3 Views IMPRESSION: Normal x-ray examination of the knee. Electronically Signed: Rony Yeboah MD at 7:06 EDT ,
--- NOTE | 2021-12-21 16:42 | RAD_ITS ---
STUDY: X-RAY - LEFT KNEE REASON FOR EXAM: Male, 61 years old. PAIN TECHNIQUE: 3 view(s) of the knee. COMPARISON: None. FINDINGS: Normal visualized distal femur. Normal visualized proximal tibia and fibula. Normal proximal tibiofibular articulation. Normal medial femorotibial compartment. Normal lateral femorotibial compartment. Normal patellofemoral articulation. The soft tissue structures are unremarkable. RAD/Knee 3 Views IMPRESSION: Normal x-ray examination of the knee. Electronically Signed: Rony Yeboah MD at 7:05 EDT ,
== END 2021-12-21 23:59 | disposition home or self-care (01) ==
LOC: MTRAD 16:40
PROVIDERS: PCP Family Medicine; Referring Provider Family Medicine; Visit Provider Family Medicine
DX: M25.512 Pain in left shoulder (principal); M25.562 Pain in left knee
CPT/HCPCS: 73030; 73562

== ENCOUNTER 2021-12-23 11:36 | Emergency (ER) | payer OTHER, SELFPAY ==
[2021-12-23 11:38] VITALS: BP 138/80; PULSE 53; RESP 17; TEMP 36.6; O2SAT 94; BMI 31.3
--- NOTE | 2021-12-23 13:00 | RAD_ITS ---
STUDY: X-RAY CHEST REASON FOR EXAM: Male, 61 years old. Shortness of breath TECHNIQUE: PA and lateral views of the chest. COMPARISON: Comparison is made with prior study dated 06/04/2020. FINDINGS: Hyperinflation. The lungs are clear. There is no demonstrated pleural abnormality. Normal size heart. Normal mediastinum and shonna. Normal visualized pulmonary arteries. There is atherosclerotic calcification of the aortic arch with tortuosity. There are diffuse degenerative changes of the visualized thoracic spine. Normal visualized ribs, clavicles, and shoulders. There is no demonstrated abnormality of the visualized soft tissue structures of the upper abdomen. RAD/Chest PA and Lateral IMPRESSION: Hyperinflation. Electronically Signed: Meir Richardson MD at 13:51 EDT ,
[2021-12-23] MEDS: Ondansetron ODT 4 MG Tablet 8 MG PO (13:08)
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
== END 2021-12-23 14:49 | disposition home or self-care (01) ==
PROVIDERS: Emergency Provider Nurse Practitioner; PCP Family Medicine; Visit Provider Nurse Practitioner
DX: T65.91XA Toxic effect of unspecified substance, accidental (unintentional), initial encounter (principal); E11.9 Type 2 diabetes mellitus without complications; R06.02 Shortness of breath; I25.10 Atherosclerotic heart disease of native coronary artery without angina pectoris; Z59.89 Other problems related to housing and economic circumstances; I10 Essential (primary) hypertension; R11.10 Vomiting, unspecified; E78.00 Pure hypercholesterolemia, unspecified; Z86.16 Personal history of COVID-19; G47.33 Obstructive sleep apnea (adult) (pediatric); Z99.89 Dependence on other enabling machines and devices; K21.9 Gastro-esophageal reflux disease without esophagitis; N40.0 Benign prostatic hyperplasia without lower urinary tract symptoms; Z82.49 Family history of ischemic heart disease and other diseases of the circulatory system
CPT/HCPCS: 71046; 99283

== ENCOUNTER 2022-01-10 17:36 | Outpatient (CLI) | payer OTHER, MEDICAID, SELFPAY | END 2022-01-10 23:59 | disposition home or self-care (01) | PROVIDERS: PCP Family Medicine; Visit Provider Family Medicine | DX: N41.9 Inflammatory disease of prostate, unspecified (principal) | CPT/HCPCS: 87086 ==

== ENCOUNTER → 2022-02-23 | Outpatient (CLI) | payer MEDICAID, SELFPAY ==
[2022-02-23 11:26] LABS: Bacteria 0 SEEN /hpf (None Seen); Mucous, Urine 0 SEEN /hpf (<or=2+); Red Blood Cells-Urine 0 SEEN /hpf (0-5); Squamous Epithelial Cells - UA 0 SEEN /hpf (0-5); White Blood Cells 0 SEEN /hpf (0-5)
[2022-02-23 14:49] LABS: Color, Urine Yellow (Yellow); Glucose, Dipstick Normal (Normal); Ketone-Dipstick Negative (Negative); Leukocyte Esterase-Dipstick Negative /ul (Negative); Nitrite-Dipstick Negative (Negative); Occult Blood-Urine Negative /ul (Negative); Protein-Dipstick Negative (Negative); Urine Bilirubin Dipstick Negative (Negative); Urine Clarity Clear (Clear); Urine Urobilinogen Normal (Normal)
== END | disposition home or self-care (01) ==
LOC: MFPLAB 11:24
PROVIDERS: PCP Family Medicine; Referring Provider Family Medicine; Visit Provider Family Medicine
DX: N40.0 Benign prostatic hyperplasia without lower urinary tract symptoms (principal)
CPT/HCPCS: 81001; 87086

== ENCOUNTER → 2022-03-09 | Outpatient (CLI) | payer MEDICAID, SELFPAY ==
--- NOTE | 2022-03-09 07:08 | ECHOD_ITS ---
Reason For Study: DYSPNEA/SOB Procedure This was a 2D Doppler, Color Flow transthoracic echocardiogram. The study was technically difficult. Exam performed in department. Left Ventricle Normal LV size. Left ventricular systolic function is normal. The estimated ejection fraction is 65 %. No evidence for diastolic dysfunction. No regional wall motion abnormalities noted. Right Ventricle Normal RV size. Normal systolic function. Atria Normal left atrium. Normal right atrium. No doppler evidence for ASD. Mitral Valve There is no mitral annular calcification. Normal mitral valve. Trivial mitral valve insufficiency. Tricuspid Valve Normal tricuspid valve. Trivial tricuspid valve insufficiency. Right ventricular systolic pressure estimated to be 38 mmHg. Aortic Valve Trisinus/trileaflet aortic valve. Normal aortic valve. Pulmonic Valve The pulmonic valve is not well visualized. Great Vessels Normal sized aortic root. Pericardium/Pleural No pericardial effusion. MMode/2D Measurements & Calculations LVIDd: 5.0 cm IVSd: 0.98 cm Ao root diam: 3.2 cm LVIDs: 3.1 cm LVPWd: 1.0 cm RVDd: 3.4 cm FS: 38.1 % LAV(MOD-bp): 36.5 ml LVAd ap4: 36.4 cm2 SV(MOD-sp4): 78.1 ml LAV(MOD-bp) Indexed: 15.8 ml/m2 LVLd ap4: 9.3 cm LAV(MOD-sp2): 38.6 ml EDV(MOD-sp4): 117.1 ml LAV(MOD-sp4): 33.9 ml EDV(sp4-el): 120.9 ml LVAs ap4: 17.8 cm2 LVLs ap4: 7.2 cm ESV(MOD-sp4): 39.0 ml ESV(sp4-el): 37.3 ml EF(MOD-sp4): 66.7 % EF(sp4-el): 69.1 % SV(sp4-el): 83.6 ml LA A4 area: 14.4 cm2 LA dimension(2D): 3.4 cm RA A4 area: 16.2 cm2 Time Measurements MV dec time: 0.24 sec Doppler Measurements & Calculations MV E max rian: 112.9 cm/sec Lat Peak E' Rian: 13.6 cm/sec Med Peak E' Rian: 11.7 cm/sec MV A max rian: 90.7 cm/sec E/E' lat: 8.3 E/E' med: 9.6 MV E/A: 1.2 Ao V2 max: 210.2 cm/sec LV V1 max: 182.7 cm/sec PA V2 max: 127.8 cm/sec Ao max P.7 mmHg LV V1 max P.4 mmHg Ao V2 mean: 136.1 cm/sec Ao mean P.7 mmHg Ao V2 VTI: 47.4 cm TR max rian: 296.8 cm/sec TR max P.3 mmHg ECHO/Echo Complete Interpretation Summary The study was technically difficult. Left ventricular systolic function is normal. The estimated ejection fraction is 65 %. Trivial mitral valve insufficiency. Trivial tricuspid valve insufficiency. Right ventricular systolic pressure estimated to be 38 mmHg. No evidence for diastolic dysfunction. Ordering Physician: Joshua Rose Referring Physician: SEBASTIAN ROUSE Performed By: Jadyn Kenny RDCS
--- NOTE | 2022-03-09 11:13 | STRESSREP_ITS ---
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 The baseline ECG demonstrated sinus bradycardia. The peak pharmacologic ECG demonstrated no obvious ECG changes. There were no cardiac dysrhythmias pretest, during pharmacologic infusion, or recovery. There was no complaint of chest discomfort during pharmacologic infusion or recovery. The examination was discontinued secondary to completion of protocol. Impression: 1. Pharmacologic (Regadenoson) evaluation 2. Peak pharmacologic ECG with no obvious ECG changes. 3. There were no cardiac dysrhythmias pretest, during pharmacologic infusion, or recovery. 4. Nuclear images pending Myocardial perfusion imaging study: Technique: The patient was injected with 14.8 millicuries of technetium 99m Cardiolite and subsequently rest SPECT Cardiolite nuclear imaging was obtained in the horizontal long, vertical long, and short axis views. The patient underwent pharmacologic (Regadenoson) evaluation with a peak heart rate of 71 beats per minute (44% percent predicted maximal heart rate) and a peak blood pressure of 138/86 mmHg. The patient was injected with 44.7 millicuries of technetium 99m Cardiolite and subsequently stress SPECT Cardiolite nuclear imaging was obtained in the horizontal long, vertical long, and short axis views. A gated Cardiolite study at peak stress was obtained. Interpretation: Rest and stress SPECT Cardiolite nuclear imaging status post realignment, normalization, and attenuation correction demonstrate relative uniform tracer uptake and myocardial perfusion appearing within normal limits. There is end systolic thickening and brightening. The gated Cardiolite study demonstrates myocardial thickening and inward wall motion. The reported LVEF is 66%. Impression: 1. Rest and stress SPECT Cardiolite nuclear imaging demonstrate relative uniform tracer uptake and myocardial perfusion appearing within normal limits. 2. The gated Cardiolite study reports an LVEF of 66%. This note was generated with [employer] software. It may contain incorrect words, spelling, and punctuation that were not noted in checking the note before signing.
== END | disposition home or self-care (01) ==
LOC: CVS 07:06
PROVIDERS: PCP Family Medicine; Visit Provider Internal Medicine Cardiovascular Disease
DX: R06.00 Dyspnea, unspecified (principal); I27.20 Pulmonary hypertension, unspecified; E78.00 Pure hypercholesterolemia, unspecified; I10 Essential (primary) hypertension
CPT/HCPCS: 78452; 93017; 93306; A9500; A4216; J2785

== ENCOUNTER 2023-08-11 15:27 | Emergency (ER) | payer BC, MEDICAID, SELFPAY ==
[2023-08-11 15:28] VITALS: BP 156/81; PULSE 51; RESP 14; TEMP 36.4; O2SAT 97; BMI 30.7
--- NOTE | 2023-08-11 15:47 | RAD_ITS ---
STUDY: X-RAY - RIGHT HAND REASON FOR EXAM: Male, 63 years old. Trauma TECHNIQUE: 4 view(s) of the hand. COMPARISON: None. FINDINGS: Normal radiocarpal articulation. Normal distal radioulnar joint. Normal visualized carpal bones. Normal carpal articulations Normal carpometacarpal articulation of the thumb. Normal second through fifth carpometacarpal joints. Normal metacarpi. Normal metacarpophalangeal joint of the thumb. Normal interphalangeal joint of the thumb. Normal proximal and distal phalanges of the thumb. Normal metacarpophalangeal joints of the second through fifth fingers. Normal proximal and distal interphalangeal joints of the second through fifth fingers. Normal phalanges of the second through fifth fingers. The soft tissue structures are unremarkable. RAD/Hand Min 3 Views IMPRESSION: Normal x-ray examination of the hand. Electronically Signed: Meir Richardson MD at 12:13 EST ,
--- NOTE | 2023-08-11 16:31 | EDS_ITS ---
HPI History of Present Illness Chief Complaint: Upper Extremity Injury Informant: patient Narrative Narrative: Patient presents with swelling and bruising to his right thumb. Patient was using an electric leaf blower today. He accidentally touched the tip of his thumb to the spinning portion of the blower. He has bruising in that area. He had a little tear of the skin near the base of the cuticle but that has stopped. He is not on any blood thinners. He has no other injury. He was seen at urgent care who sent him in here for evaluation [facility] Medical History Acute pain in scrotum BPH (benign prostatic hyperplasia) COVID-19 Diabetes Dyspnea on exertion Essential hypertension GERD (gastroesophageal reflux disease) KATIE on CPAP Pulmonary HTN Pure hypercholesterolemia Home Medications atenolol 25 mg tablet 25 mg PO DAILY 11/26/16 [History Last Taken 12/09/18] lisinopril 40 mg tablet 40 mg PO BID 11/26/16 [History Last Taken 12/09/18] acetaminophen 500 mg tablet 500 - 1,000 mg PO Q6H PRN PRN Pain 12/09/18 [History Last Taken 08/11/23 14:00] ammonium lactate 12 % lotion (Skin Treatment) 1 applic TP DAILY skin 12/09/18 [History Last Taken 12/09/18] metformin 500 mg tablet 500 mg PO DAILY 12/09/18 [History Last Taken 12/09/18] amlodipine 10 mg tablet 10 mg PO DAILY #60 TABLETS 12/10/18 [Rx Last Taken Unknown] omeprazole 40 mg capsule,delayed release 40 mg PO DAILY 12/06/21 [History Last Taken Unknown] d-mannose 500 mg capsule 500 mg PO BID 04/14/22 [History Last Taken Unknown] Allergy/AdvReac Type Severity Reaction Status Date / Time No Known Allergies Allergy Verified 08/11/23 15:27 Family History Mother Hypertension Father Hypertension Diabetes Uncle CAD (coronary artery disease) Myocardial infarction, Onset Age: 50 Surgical History History of cystoscopy Social History Smoking Status: Never smoker alcohol intake: current details: Occasional substance use type: does not use caffeine: No ROS ROS ED Constitutional Constitutional ED: Denies chills or fever(s) Gastrointestinal Gastrointestinal: Denies nausea or vomiting Musculoskeletal Musculoskeletal: Reports other Details: See history of present illness. Integumentary Reports Abrasions Neurologic Neurologic: Denies paresthesias or weakness Hematologic/Lymphatic Hematologic/Lymphatic: Denies easy bleeding or easy bruising Allergic/Immunologic Allergic/Immunologic ED: Denies urticaria EXAM Physical Exam Narrative Exam Narrative: General: Patient is sitting very comfortably in the chair. He is watching football game on TV. Looks nontoxic. HEENT shows no trauma. Cardiorespiratory shows easy unlabored breathing with normal saturations. Extremities there is a small subungual hematoma just on the medial aspect of his right thumb nail. But it really does not go all the way down into the matrix region. There is a small break in the skin near this but nothing that can be sutured. This is only a couple millimeters in length. There is bruising diffusely of the thumb including on the volar side. But his range of motion is excellent. No notable pain. Even putting some compression on the area is not causing significant pain. The area is still soft and has some flexibility. Const Vital Signs: 08/11/23 15:28 Temperature 97.6 F L Temperature Source Temporal Pulse Rate 51 L Respiratory Rate 14 Blood Pressure 156/81 H Blood Pressure Mean 106 Pulse Ox 97 Oxygen Delivery Method Room Air MDM MDM MDM Narrative Medical decision making narrative: My independent interpretation of the patient's 4 view x-ray of his right hand shows no sign of obvious fracture. Final reading is pending at this moment. Patient will be sent home. I do not think this needs splinting. I think needs ice rest. There is no indication of need for drainage. The subungual hematoma is maybe 20 to 25% of the nail and it is all on a medial aspect of the side of the nail not near the matrix. Discharge Plan Triage Chief Complaint: Upper Extremity Injury ED Provider: Manas Alvarado Dx/Rx/DC Orders Clinical Impression: Fingertip contusion Instructions: ED Finger Contusion Prescriptions: No Action d-mannose 500 mg capsule 500 mg PO BID atenolol 25 MG tablet 25 mg PO DAILY lisinopril 40 MG tablet 40 mg PO BID metformin 500 MG tablet 500 mg PO DAILY ammonium lactate [Skin Treatment] 400 GM lotion 1 applic TP DAILY acetaminophen 500 MG tablet 500 - 1,000 mg PO Q6H PRN PRN (Reason: Pain) amlodipine 10 MG tablet 10 mg PO DAILY Qty: 60 0RF omeprazole 40 mg capsule,delayed release(DR/EC) 40 mg PO DAILY Primary Care Provider: Qasim Ellis Referrals: Qasim Ellis MD [Primary Care Provider] - 3-5 Days if not improving Activity Restrictions/Additional Instructions: Elevate above heart, gentle intermittent icing but do not get too cold. May use Tylenol or Motrin/Aleve for discomfort. Disposition Disposition: Home, Self Care
== END 2023-08-11 17:29 | disposition home or self-care (01) ==
PROVIDERS: Emergency Provider Emergency Medicine; PCP Family Medicine; Visit Provider Emergency Medicine
DX: S60.011A Contusion of right thumb without damage to nail, initial encounter (principal); E11.9 Type 2 diabetes mellitus without complications; E78.00 Pure hypercholesterolemia, unspecified; I10 Essential (primary) hypertension; Z79.899 Other long term (current) drug therapy; Z79.84 Long term (current) use of oral hypoglycemic drugs; K21.9 Gastro-esophageal reflux disease without esophagitis; X58.XXXA Exposure to other specified factors, initial encounter; Y93.89 Activity, other specified
CPT/HCPCS: 73130; 99283

== ENCOUNTER → 2023-10-23 | Outpatient (CLI) | payer BC, MEDICAID, SELFPAY ==
[2023-10-23 12:16] LABS: Absolute Lymphocyte Count 1.27 X10^3/uL (0.83-4.51); Basophil# 0.04 X10^3/uL; Basophil% 0.8 % (0-1); Eosinophil# 0.19 X10^3/uL; Eosinophils% 3.9 % (0-5); Hematocrit 46.1 % (40-54); Lymphocyte # 1.27 X10^3/ul (0.83-4.51); Lymphocyte % 26.2 % (19-41); Mean Corp Hgb Conc 32.5 g/dL (32-36); Mean Corpuscular Hgb 27.1 pg (27.0-32.0); Mean Corpuscular Volume 83.4 fL (80-94); Mean Platelet Vol. 10.5 fl (6.2-12.0); Monocyte# 0.36 X10^3/uL; Monocyte% 7.4 % (0-10); NRBC Flagged by Analyzer 0 % (0-5); Neutrophil # 2.99 X10^3/uL (2.7-7.7); Neutrophil % 61.7 % (47-70); Platelet Count 258 K/mm3 (150-450); RBC Distribution Width CV 14.1 % (11.6-14.6); RBC Distribution Width SD 42.7 fl (35.1-43.9); Red Blood Count 5.53 M/mm3 (4.6-6.2); White Blood Count 4.9 K/mm3 (4.4-11.0)
[2023-10-23 12:39] LABS: Microalbumin,Random Urine 14.7 mg/L (NO RANGE EST.); Microalbumin:Creatinine Ratio 6.7 mg/g CRE (<30 mg/g CRE)
[2023-10-23 12:46] LABS: AST(SGOT) 21 U/L (15-37); Alanine Aminotransfer ALT/SGPT 26 U/L (16-61); Albumin, Serum 4.1 g/dL (3.2-5.0); Alkaline Phosphatase 69 U/L (45-117); Anion Gap 6 (5-15); BUN 14 mg/dL (7-18); BUN/Creat Ratio 15.2 RATIO (10-20); Calcium,Total 9.4 mg/dL (8.5-10.1); Chloride 108 mmol/L (98-107); Creatinine, Serum 0.92 mg/dL (0.70-1.30); EST Glomerular Filtration Rate 88 mL/min (>60); Est Glom Filt Rate - Afr Amer 107 mL/min (>60); Globulin 4.1 g/dL (2.2-4.2); Glucose 99 mg/dL (74-106); PSA,Total- Diagnostic 2.08 ng/mL (0.0-4.0); Potassium 3.9 mmol/L (3.5-5.1); Protein, Total 8.2 g/dL (6.4-8.2); Sodium Level 138 mmol/L (136-145)
[2023-10-23 13:15] LABS: Hemoglobin A1c 5.7 % (3.8-5.6)
[2023-11-01 10:09] LABS: Testosterone, % Free 2.57 % (1.50-4.20); Testosterone, Free 9.92 ng/dL (5.00-21.00); Testosterone, Total 386 ng/dL (264-916)
== END | disposition home or self-care (01) ==
LOC: MTLAB 11:08
PROVIDERS: PCP Family Medicine; Referring Provider Family Medicine; Visit Provider Family Medicine
DX: I27.20 Pulmonary hypertension, unspecified (principal); E66.9 Obesity, unspecified; E34.9 Endocrine disorder, unspecified; N41.1 Chronic prostatitis; I10 Essential (primary) hypertension; Z68.30 Body mass index [BMI] 30.0-30.9, adult
CPT/HCPCS: 36415; 80053; 82043; 82570; 83036; 84153; 84402; 84403; 85025

== ENCOUNTER → 2024-02-07 | Outpatient (CLI) | payer BC, MEDICAID, SELFPAY ==
[2024-02-07 16:09] LABS: Absolute Lymphocyte Count 1.33 X10^3/uL (0.83-4.51); Basophil# 0.04 X10^3/uL; Basophil% 0.8 % (0-1); Eosinophil# 0.12 X10^3/uL; Eosinophils% 2.4 % (0-5); Hematocrit 43.6 % (40-54); Hemoglobin 14.4 g/dL (13.0-16.5); Lymphocyte # 1.33 X10^3/ul (0.83-4.51); Lymphocyte % 26.6 % (19-41); Mean Corpuscular Volume 84.8 fL (80-94); Mean Platelet Vol. 10.8 fl (6.2-12.0); Monocyte# 0.48 X10^3/uL; Monocyte% 9.6 % (0-10); NRBC Flagged by Analyzer 0 % (0-5); Neutrophil # 3.02 X10^3/uL (2.7-7.7); Neutrophil % 60.4 % (47-70); Platelet Count 255 K/mm3 (150-450); RBC Distribution Width CV 14.5 % (11.6-14.6); RBC Distribution Width SD 43.9 fl (35.1-43.9); Red Blood Count 5.14 M/mm3 (4.6-6.2)
[2024-02-07 16:46] LABS: Hemoglobin A1c 5.5 % (3.8-5.6)
[2024-02-07 17:09] LABS: AST(SGOT) 21 U/L (15-37); Alanine Aminotransfer ALT/SGPT 22 U/L (16-61); Albumin, Serum 3.9 g/dL (3.2-5.0); Alkaline Phosphatase 71 U/L (45-117); Anion Gap 7 (5-15); BUN 10 mg/dL (7-18); Calcium,Total 9.2 mg/dL (8.5-10.1); Chloride 105 mmol/L (98-107); Cholesterol 224 mg/dL (200); Creatinine, Serum 0.91 mg/dL (0.70-1.30); EST Glomerular Filtration Rate 90 mL/min (>60); Est Glom Filt Rate - Afr Amer 109 mL/min (>60); Globulin 3.9 g/dL (2.2-4.2); Glucose 117 mg/dL (74-106); High Density Lipoprotein 39 mg/dL; Potassium 3.9 mmol/L (3.5-5.1); Protein, Total 7.8 g/dL (6.4-8.2); Sodium Level 139 mmol/L (136-145); Triglycerides 192 mg/dL; Very Low Density Lipoprotein 38 mg/dL (5-40)
[2024-02-09 11:10] LABS: Lyme Scn Total Ab w/Rflx Negative (Negative)
== END | disposition home or self-care (01) ==
LOC: MFPLAB 09:47
PROVIDERS: PCP Family Medicine; Visit Provider Family Medicine
DX: R53.81 Other malaise (principal)
CPT/HCPCS: 36415; 80053; 80061; 83036; 84443; 85025; 86618

== ENCOUNTER 2025-03-10 22:24 | Emergency (ER) | payer SELFPAY ==
[2025-03-10 22:26] VITALS: BP 179/87; PULSE 57; RESP 18; TEMP 36.4; O2SAT 97
--- NOTE | 2025-03-10 22:43 | EKG12_ITS ---
Test Reason : CP Blood Pressure : */* mmHG Vent. Rate : 54 BPM Atrial Rate : 54 BPM P-R Int : 146 ms QRS Dur : 98 ms QT Int : 428 ms P-R-T Axes : 24 67 37 degrees QTcB Int : 405 ms Sinus bradycardia with Premature atrial complexes Otherwise normal ECG Confirmed by Corey Johnson ([id number]), website/blog editor EMILY RODAS ([id number]) on 03/12/2025 6:56:47 AM Referred By: Confirmed By: Corey Johnson
--- NOTE | 2025-03-10 23:00 | ED.VIS.CHEST ---
HPI History of Present Illness Chief Complaint: Chest Pain Informant: patient and spouse/S.O. Narrative Narrative: 65-year-old male presenting to the emergency room for hypertension and chest discomfort. Patient states that yesterday he started a new job that is labor-intensive. 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 States prior to that he been out of work for 6 months that this is a big change in his daily work requirements. Tonight he came home from work and felt generally exhausted. States he ate and laid down. He woke around 930 felt queasiness and discomfort on the left side of his chest. His blood pressure was in the 180-190 systolic range. Due to the above symptoms he came to the emergency department. He has seen cardiology in the past as to stress test and echocardiogram noted to have pulmonary hypertension. He is currently utilizing his CPAP. He states he has been able to perform his job without any of the chest discomfort. He notes he has been trying to stay hydrated by drinking plenty of fluids and is frequent urination tonight. Notes the urine is light in color. He has been under increased stress recently his father passed within the month and his mom is medically ill. [facility] Medical History Dyspnea on exertion Pulmonary HTN BPH (benign prostatic hyperplasia) KATIE on CPAP Pure hypercholesterolemia GERD (gastroesophageal reflux disease) Essential hypertension COVID-19 Acute pain in scrotum Diabetes Home Medications ?Medication ?Instructions ?Recorded ?Last Taken ?Type atenolol 25 mg tablet 25 mg PO DAILY 11/26/16 12/09/18 History lisinopril 40 mg tablet 40 mg PO BID 11/26/16 12/09/18 History acetaminophen 500 mg tablet 500 - 1,000 mg PO Q6H PRN PRN Pain 12/09/18 08/11/23 14:00 History ammonium lactate 12 % lotion (Skin 1 applic TP DAILY skin 12/09/18 12/09/18 History Treatment) metformin 500 mg tablet 500 mg PO DAILY 12/09/18 12/09/18 History amlodipine 10 mg tablet 10 mg PO DAILY #60 TABLETS 12/10/18 Unknown Rx omeprazole 40 mg capsule,delayed 40 mg PO DAILY 12/06/21 Unknown History release latanoprost 0.005 % eye drops drp ophthalmic (eye) 12/19/23 Unknown History timolol maleate 0.5 % eye drops drp ophthalmic (eye) 12/19/23 Unknown History Allergy/AdvReac Type Severity Reaction Status Date / Time No Known Allergies Allergy Verified 03/10/25 22:28 Family History Mother Hypertension Father Hypertension Diabetes Uncle CAD (coronary artery disease) Myocardial infarction, Onset Age: 50 Surgical History History of cystoscopy Social History (Updated 03/10/25 @ 23:34 by Flora Gomez) housing: house current occupational status: employed Smoking Status: Never smoker alcohol intake: current details: Occasional substance use type: does not use caffeine: No ROS ROS ED Constitutional Constitutional ED: Denies chills, fever(s) or weight loss Eyes Eyes: Denies change in vision or diplopia ENT ENT ED: Denies ear pain, rhinorrhea or sore throat Cardiovascular Cardiovascular: Reports as per HPI and chest pain; Denies orthopnea, palpitations or racing heartbeat Respiratory/Chest Respiratory/Chest: Denies cough, dyspnea or orthopnea Gastrointestinal Gastrointestinal: Reports nausea; Denies abdominal pain, diarrhea or vomiting Genitourinary Genitourinary ED: Denies dysuria, hematuria or urinary frequency Musculoskeletal Musculoskeletal: Denies arthralgias or myalgias Integumentary Denies abscess or rash Neurologic Neurologic: Denies headache(s) or weakness Psychiatric Psychiatric: Denies anxiety, depression, suicidal ideation or suicidal thoughts Endocrine Endocrinology: Denies polydipsia, polyphagia or polyuria Allergic/Immunologic Allergic/Immunologic ED: Denies mouth swelling, tongue swelling or urticaria EXAM Physical Exam Const Vital Signs: 03/10/25 22:26 03/10/25 23:26 03/10/25 23:29 Temperature 97.5 F L Temperature Source Oral Pulse Rate 57 L 54 L Respiratory Rate 18 18 Respiratory Effort Respiratory Pattern Blood Pressure 179/87 H 139/84 H Blood Pressure Mean 117 102 Pulse Ox 97 97 99 Oxygen Delivery Method Room Air Room Air Room Air 03/10/25 23:43 03/11/25 00:00 03/11/25 01:00 Temperature Temperature Source Pulse Rate 49 L 46 L Respiratory Rate 14 18 Respiratory Effort Normal Non-Labored Respiratory Pattern Normal Blood Pressure 148/80 H 133/70 H Blood Pressure Mean 102 91 Pulse Ox 97 95 Oxygen Delivery Method Room Air Room Air 03/11/25 01:00 03/11/25 02:00 03/11/25 02:52 Temperature 98 F Temperature Source Pulse Rate 78 80 58 L Respiratory Rate 16 18 17 Respiratory Effort Respiratory Pattern Blood Pressure 131/75 H 145/87 H 136/79 H Blood Pressure Mean 93 106 98 Pulse Ox 99 98 97 Oxygen Delivery Method Positive well nourished and well developed General Appearance ED: well developed and NAD HEENT Reports normocephalic, head/scalp atraumatic and moist mucous membranes Eyes PERRL and EOMs intact bilaterally Neck no lymphadenopathy, supple and no JVD Resp normal respiratory effort and clear to auscultation bilaterally Cardio regular rate, regular rhythm and no murmurs GI normal to inspection, nondistended, normoactive bowel sounds and non-tender Palpation: soft Back/Spine no CVA tenderness and normal ROM Extremity normal to inspection General Extremety ED: Negative for edema General Extremity: Negative for edema Neuro oriented x3 and CN's II-XII intact bilaterally Sensorium / Orientation: alert Motor Exam: strength 5/5 throughout Psych mental status grossly normal Mood & Affect: Negative for depressed or tearful Skin no rashes or lesions noted and no wounds MDM MDM MDM Narrative Medical decision making narrative: Differential diagnosis includes acute coronary syndrome anxiety acute kidney injury dehydration electrolyte abnormalities anemia pleural effusion bronchospasm My independent interpretation of the chest x-ray is no acute process less. Patient's EKG shows a sinus bradycardia at a rate of 54 with no ischemic changes. 2 sets of cardiac enzymes are normal. Potassium slightly low at 3.2. Hemoglobin 13.9. Glucose 202. Patient's had no events on the monitor. Do not feel he is having ACS. I think that between the stress of his father dying his mom's medical health and his change in job requiring more physical exertion may be contributing to his symptoms. Patient is comfortable following up with his doctor continue to hydrate return if worsening or concerns History & Record Review Discussion w/independent historian: Patient and Family Additional record(s) reviewed:: Prior outpatient record, Prior ED visit and Prior labs Lab Data Attestation: I reviewed the patient's lab results. Labs: Laboratory Results - last 24 hr 03/10/25 03/11/25 23:24 01:37 WBC 7.8 RBC 4.70 Hgb 13.9 Hct 39.2 L MCV 83.4 MCH 29.6 MCHC 35.5 RDW Std Deviation 41.0 RDW Coeff of Elvis 13.5 Plt Count 221 MPV 10.1 Immature Gran % (Auto) 0.300 Neut % (Auto) 68.7 Lymph % (Auto) 20.2 Armstrong % (Auto) 9.4 Eos % (Auto) 1.0 Baso % (Auto) 0.4 Absolute Neuts (auto) 5.4 Absolute Lymphs (auto) 1.57 Nucleated RBC % 0 Sodium 139 Potassium 3.2 L Chloride 105 Carbon Dioxide 19.8 L Anion Gap 14 BUN 12 Creatinine 0.83 Estim Creat Clear Calc 121.60 Est GFR (MDRD) Non-Af 99 BUN/Creatinine Ratio 14.9 Glucose 202 H Calcium 8.7 Troponin T High Sens 7 Troponin T Hi Sens 2 Hr 9 Radiography Diagnostic Testing: Clinical Impression(s) from Imaging Studies Chest X-Ray 03/10/25 23:06 IMPRESSION: No Acute Findings. Reading Location: [place] [id number] EKG Initial EKG: Attestation: I personally reviewed and interpreted this EKG as follows: Comments: Sinus bradycardia ventricular rate of 54 bpm Discharge Plan Triage Chief Complaint: Chest Pain Other Complaint: Hypertension ED Provider: Brian Santiago Dx/Rx/DC Orders Clinical Impression: Chest pain, Essential hypertension, Pure hypercholesterolemia Instructions: ED Chest Pain, Noncardiac Prescriptions: No Action timolol maleate 0.5 % drops ophthalmic (eye) latanoprost 0.005 % drops ophthalmic (eye) atenolol 25 MG tablet 25 mg PO DAILY lisinopril 40 MG tablet 40 mg PO BID metformin 500 MG tablet 500 mg PO DAILY ammonium lactate [Skin Treatment] 400 GM lotion 1 applic TP DAILY acetaminophen 500 MG tablet 500 - 1,000 mg PO Q6H PRN PRN (Reason: Pain) amlodipine 10 MG tablet 10 mg PO DAILY Qty: 60 0RF omeprazole 40 mg capsule,delayed release(DR/EC) 40 mg PO DAILY Primary Care Provider: Qasim Ellis Referrals: Qasim Ellis MD [Primary Care Provider] - 1 Week Print Language: Pashto Disposition Disposition: Home, Self Care Discharge Date/Time: 03/11/25 03:06
--- NOTE | 2025-03-10 23:06 | RAD_ITS ---
PROCEDURE: CHEST 1 VIEW (PORTABLE) 03/10/2025 REASON FOR EXAM: CHEST PAIN TECHNIQUE: Frontal view of the chest. COMPARISON: 12/23/2021. FINDINGS: The heart is normal in size. The mediastinum is normal in contour. The lungs are clear. No acute osseous abnormalities. RAD/Chest 1 View (Portable) IMPRESSION: No Acute Findings. Reading Location: [place] [id number]
[2025-03-10 23:26] VITALS: BP 139/84; PULSE 54; RESP 18; O2SAT 97
[2025-03-10 23:29] VITALS: O2SAT 99
[2025-03-10 23:46] LABS: Absolute Lymphocyte Count 1.57 X10^3/uL (0.83-4.51); Absolute Neutrophil Count 5.4 X10^3/uL (2.0-7.7); Basophil# 0.03 X10^3/uL; Basophil% 0.4 % (0-1); Eosinophil# 0.08 X10^3/uL; Hematocrit 39.2 % (40-54); Hemoglobin 13.9 g/dL (13.0-16.5); Lymphocyte # 1.57 X10^3/ul (0.83-4.51); Lymphocyte % 20.2 % (19-41); Mean Corp Hgb Conc 35.5 g/dL (32-36); Mean Corpuscular Hgb 29.6 pg (27.0-32.0); Mean Corpuscular Volume 83.4 fL (80-94); Mean Platelet Vol. 10.1 fl (6.2-12.0); Monocyte# 0.73 X10^3/uL; Monocyte% 9.4 % (0-10); NRBC Flagged by Analyzer 0 % (0-5); Neutrophil # 5.35 X10^3/uL (2.7-7.7); Neutrophil % 68.7 % (47-70); Platelet Count 221 K/mm3 (150-450); RBC Distribution Width CV 13.5 % (11.6-14.6); White Blood Count 7.8 K/mm3 (4.4-11.0)
[2025-03-10 23:59] LABS: Anion Gap 14 (5-15); BUN 12 mg/dL (4-19); BUN/Creat Ratio 14.9 RATIO (10-20); Calcium,Total 8.7 mg/dL (7.6-11.0); Carbon Dioxide 19.8 mmol/L (21.0-32.0); Chloride 105 mmol/L (98-108); Creatinine, Serum 0.83 mg/dL (0.70-1.20); EST Glomerular Filtration Rate 99 (>60); Glucose 202 mg/dL (70-99); Potassium 3.2 mmol/L (3.3-5.1); Sodium Level 139 mmol/L (133-145); Troponin T High Sensitivity 7 ng/L (<=22)
[2025-03-11] VITALS: BP 148/80; PULSE 49; RESP 14; O2SAT 97
[2025-03-11 01:00] VITALS: BP 131/75; BP 133/70; PULSE 46; PULSE 78; RESP 16; RESP 18; O2SAT 95; O2SAT 99
[2025-03-11 02:00] VITALS: BP 145/87; PULSE 80; RESP 18; O2SAT 98
[2025-03-11 02:23] LABS: Troponin T High Sens 2 HR 9 ng/L (<=22)
[2025-03-11 02:52] VITALS: BP 136/79; PULSE 58; RESP 17; TEMP 36.6; O2SAT 97
== END 2025-03-11 03:06 | disposition home or self-care (01) ==
PROVIDERS: Emergency Provider Emergency Medicine; PCP Family Medicine; Visit Provider Emergency Medicine
DX: R07.89 Other chest pain (principal); E11.9 Type 2 diabetes mellitus without complications; I10 Essential (primary) hypertension; Z56.1 Change of job; Z63.4 Disappearance and death of family member; Z63.79 Other stressful life events affecting family and household; Z79.84 Long term (current) use of oral hypoglycemic drugs; Z79.899 Other long term (current) drug therapy; Z86.16 Personal history of COVID-19
CPT/HCPCS: 71045; 80048; 84484; 85025; 93005; 99285; A4216

== ENCOUNTER 2025-03-15 21:35 | Emergency (ER) | payer SELFPAY ==
[2025-03-15 21:35] VITALS: BP 196/87; PULSE 45; RESP 18; TEMP 36.3; O2SAT 98; BMI 29.2
--- NOTE | 2025-03-15 21:54 | EKG12_ITS ---
Test Reason : BRADYCARDIA Blood Pressure : */* mmHG Vent. Rate : 44 BPM Atrial Rate : 44 BPM P-R Int : 156 ms QRS Dur : 106 ms QT Int : 454 ms P-R-T Axes : -12 47 7 degrees QTcB Int : 388 ms Marked sinus bradycardia Junctional ST depression, probably abnormal Abnormal ECG Confirmed by JOESPH GARCIA, FLORENCE ([id number]), continuity editor EMILY RODAS ([id number]) on 03/17/2025 6:43:37 AM Referred By: EMILY Confirmed By: FLORENCE PINK MD
--- NOTE | 2025-03-15 22:09 | EX.ED.DYSGE1 ---
HPI History of Present Illness Chief Complaint: Hypertension Informant: patient Onset/Context/Timing Onset: Days Context: Gradual Onset Timing: Continuous Current Severity: Mild Maximum Severity: Mild Narrative Narrative: 65-year-old male history of hypertension diabetes. Currently is on 3 blood pressure medications including amlodipine, lisinopril and atenolol. He openly admits he is under increased stress recently lost his father a month ago, his mom has had medical issues and he just started a new job. Today his blood pressure is running high around 190s over 110 he was concerned and came in to be evaluated. He was seen here around 5 days ago and had unremarkable labs and workup. Prior similar symptoms: Yes Recent Illness/Hospitalization: No PFSH PFS Medical History Dyspnea on exertion Pulmonary HTN BPH (benign prostatic hyperplasia) KATIE on CPAP Pure hypercholesterolemia GERD (gastroesophageal reflux disease) Essential hypertension COVID-19 Acute pain in scrotum Diabetes Home Medications ?Medication ?Instructions ?Recorded ?Last Taken ?Type atenolol 25 mg tablet 25 mg PO DAILY 11/26/16 03/15/25 History lisinopril 40 mg tablet 40 mg PO BID 11/26/16 03/15/25 History acetaminophen 500 mg tablet 500 - 1,000 mg PO Q6H PRN PRN Pain 12/09/18 03/15/25 History ammonium lactate 12 % lotion (Skin 1 applic TP DAILY skin 12/09/18 03/15/25 History Treatment) metformin 500 mg tablet 500 mg PO DAILY 12/09/18 03/15/25 History amlodipine 10 mg tablet 10 mg PO DAILY #60 TABLETS 12/10/18 03/14/25 Rx omeprazole 40 mg capsule,delayed 40 mg PO DAILY 12/06/21 03/15/25 History release latanoprost 0.005 % eye drops 1 drp ophthalmic (eye) DAILY 12/19/23 03/15/25 History timolol maleate 0.5 % eye drops 1 drp ophthalmic (eye) Q12H 12/19/23 03/15/25 History ciprofloxacin HCl 500 mg tablet 500 mg PO Q12.TCU 03/15/25 03/15/25 History fluoxetine 20 mg capsule 20 mg PO DAILY 03/15/25 03/14/25 History lorazepam 1 mg tablet (Ativan) 1 mg PO DAILY PRN anxiety 10 days 03/15/25 Unknown Rx #10 tabs Allergy/AdvReac Type Severity Reaction Status Date / Time No Known Allergies Allergy Verified 03/15/25 21:36 Family History Mother Hypertension Father Hypertension Diabetes Uncle CAD (coronary artery disease) Myocardial infarction, Onset Age: 50 Surgical History History of cystoscopy Social History housing: house current occupational status: employed Smoking Status: Never smoker alcohol intake: current details: Occasional substance use type: does not use caffeine: No ROS ROS ED ROS Narrative Denies recent illness. Constitutional Constitutional ED: Denies chills or fever(s) Eyes Eyes: Denies blurry vision ENT ENT ED: Denies ear pain Cardiovascular Cardiovascular: Denies chest pain Respiratory/Chest Respiratory/Chest: Denies cough Gastrointestinal Gastrointestinal: Denies abdominal pain Genitourinary Genitourinary ED: Denies dysuria Musculoskeletal Musculoskeletal: Denies arthralgias Integumentary Denies abscess Neurologic Neurologic: Denies headache(s) Psychiatric Psychiatric: Denies anxiety Endocrine Endocrinology: Denies cold intolerance Hematologic/Lymphatic Hematologic/Lymphatic: Reports none Allergic/Immunologic Allergic/Immunologic ED: Denies mouth swelling, tongue swelling or urticaria EXAM Physical Exam Narrative Exam Narrative: 65-year-old male vital signs stable afebrile initial blood pressure 196/87 while talking to him it was repeated 163/89. He is in no distress. H EENT exam pupils round react light. No facial droop. Normal speech. Neck nontender. No JVD. Lungs clear to auscultation. Heart regular rhythm no murmur rate about 45 he tells me that his baseline heart rate. Chest wall and ribs are nontender. Abdomen soft nontender. Moving all 4 extremities. Normal range of motion. Nontender no edema. Normal strength. Back nontender. Neurologically is awake alert. Answering questions following commands. Const Vital Signs: 03/15/25 21:35 03/15/25 21:48 03/15/25 22:19 Temperature 97.3 F L Temperature Source Temporal Pulse Rate 45 L 44 L Respiratory Rate 18 16 Respiratory Effort Normal Non-Labored Blood Pressure 196/87 H 156/74 H Blood Pressure Mean 123 101 Pulse Ox 98 98 Oxygen Delivery Method Room Air Room Air Positive well nourished and well developed; Negative for cachectic, contractures or unkempt General Appearance ED: well developed and NAD; Negative for unkempt, cachectic, contractures, cyanotic, diaphoretic or pallor Nutritional Appearance: Negative for cachectic HEENT Reports moist mucous membranes Eyes PERRL and EOMs intact bilaterally Neck no lymphadenopathy, supple and no JVD Chest Wall inspection of chest normal and palpation of chest normal Resp normal respiratory effort and clear to auscultation bilaterally Cardio regular rhythm, S1 normal heart sound, S2 normal heart sound and no murmurs; Negative for regular rate Rate: bradycardia GI normal to inspection, nondistended, normoactive bowel sounds, non-tender, non-distended and no masses Palpation: soft; Negative for tender or guarding Back/Spine no CVA tenderness General Back: Negative for CVA tenderness Cervical Spine: Negative for cervical spine tenderness Thoracic Spine / Upper Back: Negative for thoracic spinal tenderness or paraspinal muscle tenderness Lumbar Spine / Lower Back: Negative for lumbar spinal tenderness Extremity normal to inspection General Extremety ED: Negative for edema or tenderness General Extremity: Negative for edema Neuro oriented x3 and CN's II-XII intact bilaterally Sensorium / Orientation: alert; Negative for orientation impaired, lethargic or stuporous Motor Exam: strength 5/5 throughout Psych mental status grossly normal Appearance: Negative for unkempt Attitude: No agitated Mood & Affect: anxious; Negative for depressed or tearful Skin no rashes or lesions noted, no wounds and skin turgor normal General Skin Exam: elasticity normal; Negative for jaundice or pallor Lesions: No lesion noted Rashes: No rashes noted Trauma: Negative for abrasion Wounds: Negative for wounds noted MDM MDM MDM Narrative Medical decision making narrative: 65-year-old male acute on chronic hypertension. Anxiety. He is on 3 different blood pressure medications. He and I discussed options such as weight loss, exercise, reading and meditation I will control his blood pressure. Also possibly following up with a instrument and controls technician to have another view of his blood pressure medications see if they can condense those or change the doses. He just had labs 5 days ago which were unremarkable. He has a normal exam today I do not think he needs any further workup. I will write him for a small prescription of Ativan as needed for anxiety. Repeat exam patient is doing well at 11:33 PM. Blood pressure continues to improve. He will be discharged to home. Outpatient follow-up as we discussed. Ativan as needed for anxiety. History & Record Review Additional record(s) reviewed:: Prior inpatient record, Prior outpatient record, Prior ED visit and Prior labs Rhythm Strip Rhythm Strip: Junctional bradycardia Rate: 44 Ectopy: None EKG Initial EKG: Attestation: I personally reviewed and interpreted this EKG as follows: Interpretation: No Acute Injury Pattern and Sinus Bradycardia Comments: Junctional bradycardia rate of 44. No acute signs of SD or ischemia. Discharge Plan Triage Chief Complaint: Hypertension ED Provider: Camacho Leiva Dx/Rx/DC Orders Clinical Impression: Hypertension, Anxiety, History of diabetes mellitus Instructions: Anxiety Disorders Tx, ED High Blood Pressure Hypertension Prescriptions: New lorazepam [Ativan] 1 mg tablet 1 mg PO DAILY PRN (Reason: anxiety) 10 Days Qty: 10 0RF No Action timolol maleate 0.5 % drops 1 drp ophthalmic (eye) Q12H latanoprost 0.005 % drops 1 drp ophthalmic (eye) DAILY atenolol 25 MG tablet 25 mg PO DAILY lisinopril 40 MG tablet 40 mg PO BID metformin 500 MG tablet 500 mg PO DAILY ammonium lactate [Skin Treatment] 400 GM lotion 1 applic TP DAILY acetaminophen 500 MG tablet 500 - 1,000 mg PO Q6H PRN PRN (Reason: Pain) amlodipine 10 MG tablet 10 mg PO DAILY Qty: 60 0RF ciprofloxacin HCl 500 mg tablet 500 mg PO Q12.TCU fluoxetine 20 mg capsule 20 mg PO DAILY omeprazole 40 mg capsule,delayed release(DR/EC) 40 mg PO DAILY Primary Care Provider: Qasim Ellis Referrals: Qasim Ellis MD [Primary Care Provider] - 1 Day Activity Restrictions/Additional Instructions: Follow-up with Dr. Ellis. Discussed with him follow-up with a instrument and controls technician for further evaluation of your blood pressure medications. Options for anxiety going on different anxiety med or continue the 1 you are currently on. Ativan as needed. Other options such as reading, counseling, exercise, walking and meditation. Print Language: [place] Disposition Disposition: Home, Self Care
[2025-03-15 22:19] VITALS: BP 156/74; PULSE 44; RESP 16; O2SAT 98
[2025-03-15 23:00] VITALS: BP 161/84; PULSE 42
[2025-03-15 23:36] VITALS: BP 161/84; PULSE 42; RESP 16; TEMP 36.3; O2SAT 99
== END 2025-03-15 23:40 | disposition home or self-care (01) ==
PROVIDERS: Emergency Provider Emergency Medicine; PCP Family Medicine; Visit Provider Emergency Medicine
DX: I10 Essential (primary) hypertension (principal); E11.9 Type 2 diabetes mellitus without complications; E78.00 Pure hypercholesterolemia, unspecified; F41.9 Anxiety disorder, unspecified; G47.33 Obstructive sleep apnea (adult) (pediatric); Z79.84 Long term (current) use of oral hypoglycemic drugs; Z79.899 Other long term (current) drug therapy
CPT/HCPCS: 93005; 99283; A4216

== ENCOUNTER 2025-03-18 12:19 | Emergency (ER) | payer SELFPAY ==
[2025-03-18 12:20] VITALS: BP 182/87; PULSE 45; RESP 16; TEMP 36.4; O2SAT 99; BMI 30.2
--- NOTE | 2025-03-18 12:26 | EKG12_ITS ---
Test Reason : cp Blood Pressure : */* mmHG Vent. Rate : 46 BPM Atrial Rate : 46 BPM P-R Int : 152 ms QRS Dur : 102 ms QT Int : 450 ms P-R-T Axes : 19 66 55 degrees QTcB Int : 393 ms Sinus bradycardia Otherwise normal ECG Confirmed by LO GARCIA, ARLENE ([id number]), staff editor VANNA DE JESUS ([id number]) on 03/20/2025 1:00:12 PM Referred By: Es Confirmed By: ARLENE BLANCHARD MD
--- NOTE | 2025-03-18 12:27 | ED.VIS.CHEST ---
HPI History of Present Illness Chief Complaint: Chest Pain Informant: patient Onset/Context/Timing Onset: Today Activity at onset: gradual Timing: Waxes and wanes Quality: Positive for Aching and Stabbing Location: Left Chest Worsened By: Nothing Relieved By: Nothing Associated Symptoms: Positive for Nausea, Lightheadedness and Palpitations; Negative for Vomiting, Diaphoresis, Dyspnea, Cough, Fever or Acid Reflux Narrative Narrative: Patient presents with elevated blood pressure that was noticed today. Patient states his blood pressure has been waxing and waning over the past few days. Patient states it comes on gradually. The patient describes the pain as aching but stabbing at times. Patient states the pain radiates into his left arm and left shoulder. Patient states nothing makes it better nothing makes it worse. Patient states he was recently started on chlorthalidone. Patient was seen here recently was given a prescription for Ativan to take as needed for anxiety. Patient states he has been taking this at bedtime which has been helping with his anxiety. Patient denies any cardiac or PE risk factors. CVD Risk Factors: Positive for Hypertension; Negative for Diabetes, Hypercholesterolemia, Family History 1' </=55 or Smoking PE Risk Factors: Negative for Recent Travel/Surgery, Recent Immobilization, Prior DVT or PE, Cancer or OCP + Smoking + >/=35 PFSH PFSH Medical History Dyspnea on exertion Pulmonary HTN BPH (benign prostatic hyperplasia) KATIE on CPAP Pure hypercholesterolemia GERD (gastroesophageal reflux disease) Essential hypertension COVID-19 Acute pain in scrotum Diabetes Home Medications ?Medication ?Instructions ?Recorded ?Last Taken ?Type atenolol 25 mg tablet 25 mg PO DAILY 11/26/16 03/15/25 History lisinopril 40 mg tablet 40 mg PO BID 11/26/16 03/15/25 History acetaminophen 500 mg tablet 500 - 1,000 mg PO Q6H PRN PRN Pain 12/09/18 03/15/25 History ammonium lactate 12 % lotion (Skin 1 applic TP DAILY skin 12/09/18 03/15/25 History Treatment) metformin 500 mg tablet 500 mg PO DAILY 12/09/18 03/15/25 History amlodipine 10 mg tablet 10 mg PO DAILY #60 TABLETS 12/10/18 03/14/25 Rx omeprazole 40 mg capsule,delayed 40 mg PO DAILY 12/06/21 03/15/25 History release latanoprost 0.005 % eye drops 1 drp ophthalmic (eye) DAILY 12/19/23 03/15/25 History timolol maleate 0.5 % eye drops 1 drp ophthalmic (eye) Q12H 12/19/23 03/15/25 History ciprofloxacin HCl 500 mg tablet 500 mg PO Q12.TCU 03/15/25 03/15/25 History fluoxetine 20 mg capsule 20 mg PO DAILY 03/15/25 03/14/25 History lorazepam 1 mg tablet (Ativan) 1 mg PO DAILY PRN anxiety 10 days 03/15/25 Unknown Rx #10 tabs Allergy/AdvReac Type Severity Reaction Status Date / Time No Known Allergies Allergy Verified 03/18/25 12:23 Family History Mother Hypertension Father Hypertension Diabetes Uncle CAD (coronary artery disease) Myocardial infarction, Onset Age: 50 Surgical History History of cystoscopy Social History housing: house current occupational status: employed Smoking Status: Never smoker alcohol intake: current details: Occasional substance use type: does not use caffeine: No ROS ROS ED Constitutional Constitutional ED: Denies chills or fever(s) Eyes Eyes: Denies blurry vision or change in vision ENT ENT ED: Denies rhinorrhea or sore throat Cardiovascular Cardiovascular: Reports as per HPI, chest pain and palpitations Respiratory/Chest Respiratory/Chest: Denies cough or dyspnea Gastrointestinal Gastrointestinal: Denies nausea or vomiting Genitourinary Genitourinary ED: Denies dysuria or hematuria Musculoskeletal Musculoskeletal: Denies back pain or neck pain Integumentary Denies abscess or rash Neurologic Neurologic: Denies headache(s) or weakness Allergic/Immunologic Allergic/Immunologic ED: Denies mouth swelling or urticaria EXAM Physical Exam Const Vital Signs: 03/18/25 12:20 03/18/25 12:27 03/18/25 12:45 Temperature 97.6 F L Temperature Source Oral Pulse Rate 45 L Respiratory Rate 16 Respiratory Effort Normal Non-Labored Respiratory Pattern Normal Blood Pressure 182/87 H Blood Pressure Mean 118 Pulse Ox 99 98 Oxygen Delivery Method Room Air Room Air 03/18/25 13:15 03/18/25 14:00 03/18/25 15:32 Temperature 98.2 F Temperature Source Pulse Rate 44 L 43 L 42 L Respiratory Rate 13 11 L 14 Respiratory Effort Respiratory Pattern Blood Pressure 159/82 H 185/91 H Blood Pressure Mean 105 122 Pulse Ox 97 97 100 Oxygen Delivery Method Positive well nourished and well developed General Appearance ED: well developed and NAD HEENT Reports moist mucous membranes Neck supple and no JVD Resp normal respiratory effort and clear to auscultation bilaterally Cardio regular rate and regular rhythm GI soft to palpation, non-tender and non-distended Extremity normal to inspection General Extremety ED: Negative for edema or tenderness General Extremity: Negative for edema Neuro oriented x3, CN's II-XII intact bilaterally and no sensory deficits noted Sensorium / Orientation: awake and alert Motor Exam: strength 5/5 throughout Psych mental status grossly normal Heart Score History: Slightly/Non-Suspicious ECG: Normal Age: >45 - <65 years Risk Factors: 1 or 2 Risk Factors Troponin: </= Normal Limit Score: 2 MDM MDM MDM Narrative Medical decision making narrative: Differential diagnosis includes cardiac dysrhythmia, cardiac ischemia, electrolyte abnormality, pneumonia, bronchitis, hypertension, and anxiety. EKG will be obtained to assess for cardiac dysrhythmia and cardiac ischemia. Chest x-ray will be obtained to assess for pneumonia or bronchitis. CBC will be obtained to assess for leukocytosis and anemia. Basic metabolic profile will be obtained to assess for electrolyte abnormalities renal function. High-sensitivity troponin will be obtained to assess for cardiac ischemia. 2-hour repeat high-sensitivity troponin will be obtained to assess for ongoing cardiac ischemia. History & Record Review Additional record(s) reviewed:: Prior ED visit and Prior labs Lab Data Attestation: I reviewed the patient's lab results. Lab results narrative: CBC was reviewed and was within normal limits. Basic metabolic profile was reviewed and was essentially within normal limits. Glucose was mildly elevated at 136. Initial high-sensitivity troponin was reviewed and was normal at 7. 2-hour repeat high-sensitivity troponin was reviewed and was normal at 7. Labs: Laboratory Results - last 24 hr 03/18/25 03/18/25 12:25 13:44 WBC 6.8 RBC 5.78 Hgb 17.2 H Hct 48.7 MCV 84.3 MCH 29.8 MCHC 35.3 RDW Std Deviation 40.5 RDW Coeff of Elvis 13.2 Plt Count 307 MPV 9.9 Immature Gran % (Auto) 0.300 Neut % (Auto) 69.3 Lymph % (Auto) 21.6 [place] % (Auto) 7.5 Eos % (Auto) 0.9 Baso % (Auto) 0.4 Absolute Neuts (auto) 4.7 Absolute Lymphs (auto) 1.47 Nucleated RBC % 0 Sodium 136 Potassium 4.1 Chloride 100 Carbon Dioxide 21.0 Anion Gap 16 H BUN 10 Creatinine 0.99 Estim Creat Clear Calc 102.08 Est GFR (MDRD) Non-Af 86 BUN/Creatinine Ratio 10.4 Glucose 136 H Calcium 9.5 Troponin T High Sens 7 Troponin T Hi Sens 2 Hr 7 Radiography Diagnostic Testing: Clinical Impression(s) from Imaging Studies Chest X-Ray 03/18/25 12:50 IMPRESSION: No acute process is detected. Reading [facility] EKG Initial EKG: Attestation: I personally reviewed and interpreted this EKG as follows: Interpretation: No Acute Injury Pattern and Sinus Bradycardia (46) Comments: EKG was obtained. On my independent interpretation, it showed a sinus bradycardia with a rate of 46. OK interval, QRS interval, and QTc intervals were all normal. [place] was normal. There are no acute ST or T wave changes. Prior EKG tracings: available for review Prior: Unchanged (03/15/2025) Treatment and Re-Evaluation :: Patient was given aspirin here. Patient was advised of his findings. Patient's blood pressure increased to 179/96. Patient was given a dose of clonidine. Patient has a HEART score of 2. Patient was advised that this is low risk for acute cardiac event. Patient was instructed to follow-up with his primary care physician tomorrow as scheduled. Patient was instructed to keep a log of his blood pressures and to take this with his follow-up appointment. Patient was instructed to return if worse in any way. Patient understood and was agreeable with the plan. All questions were answered. Discharge Plan Triage Chief Complaint: Chest Pain ED Provider: Qasim Ovalle Dx/Rx/DC Orders Clinical Impression: Chest pain, Essential hypertension Instructions: ED Chest Pain, Uncertain Cause, ED Hypertension, Established Prescriptions: No Action timolol maleate 0.5 % drops 1 drp ophthalmic (eye) Q12H latanoprost 0.005 % drops 1 drp ophthalmic (eye) DAILY atenolol 25 MG tablet 25 mg PO DAILY lisinopril 40 MG tablet 40 mg PO BID metformin 500 MG tablet 500 mg PO DAILY ammonium lactate [Skin Treatment] 400 GM lotion 1 applic TP DAILY acetaminophen 500 MG tablet 500 - 1,000 mg PO Q6H PRN PRN (Reason: Pain) amlodipine 10 MG tablet 10 mg PO DAILY Qty: 60 0RF ciprofloxacin HCl 500 mg tablet 500 mg PO Q12.TCU fluoxetine 20 mg capsule 20 mg PO DAILY lorazepam [Ativan] 1 mg tablet 1 mg PO DAILY PRN (Reason: anxiety) 10 Days Qty: 10 0RF omeprazole 40 mg capsule,delayed release(DR/EC) 40 mg PO DAILY Primary Care Provider: Qasim Ellis Referrals: Qasim Ellis MD [Primary Care Provider] - 1 Day Print Language: [place]ian Disposition Disposition: Home, Self Care Discharge Date/Time: 03/18/25 15:44
[2025-03-18 12:45] VITALS: O2SAT 98
--- NOTE | 2025-03-18 12:50 | RAD_ITS ---
PROCEDURE: CHEST 1 VIEW (PORTABLE) 03/18/2025 REASON FOR EXAM: CHEST PAIN TECHNIQUE: Frontal view of the chest. COMPARISON: Chest radiograph March 10, 2025 FINDINGS: Hardware: EKG lead wires project over the chest. Heart: Normal size. Lungs: Clear. No pleural effusions. No pneumothorax. Bones: No aggressive process identified. Other: RAD/Chest 1 View (Portable) IMPRESSION: No acute process is detected. Reading Location: [facility]
[2025-03-18 12:51] LABS: Absolute Lymphocyte Count 1.47 X10^3/uL (0.83-4.51); Absolute Neutrophil Count 4.7 X10^3/uL (2.0-7.7); Basophil# 0.03 X10^3/uL; Basophil% 0.4 % (0-1); Eosinophil# 0.06 X10^3/uL; Eosinophils% 0.9 % (0-5); Hematocrit 48.7 % (40-54); Hemoglobin 17.2 g/dL (13.0-16.5); Lymphocyte # 1.47 X10^3/ul (0.83-4.51); Lymphocyte % 21.6 % (19-41); Mean Corp Hgb Conc 35.3 g/dL (32-36); Mean Corpuscular Hgb 29.8 pg (27.0-32.0); Mean Corpuscular Volume 84.3 fL (80-94); Mean Platelet Vol. 9.9 fl (6.2-12.0); Monocyte# 0.51 X10^3/uL; Monocyte% 7.5 % (0-10); NRBC Flagged by Analyzer 0 % (0-5); Neutrophil # 4.72 X10^3/uL (2.7-7.7); Neutrophil % 69.3 % (47-70); Platelet Count 307 K/mm3 (150-450); RBC Distribution Width CV 13.2 % (11.6-14.6); RBC Distribution Width SD 40.5 fl (35.1-43.9); Red Blood Count 5.78 M/mm3 (4.6-6.2); White Blood Count 6.8 K/mm3 (4.4-11.0)
[2025-03-18 13:12] LABS: Anion Gap 16 (5-15); BUN 10 mg/dL (4-19); BUN/Creat Ratio 10.4 RATIO (10-20); Calcium,Total 9.5 mg/dL (7.6-11.0); Chloride 100 mmol/L (98-108); Creatinine, Serum 0.99 mg/dL (0.70-1.20); EST Glomerular Filtration Rate 86 (>60); Estimated Creatinine Clearance 102.08 ml/min (50-250); Glucose 136 mg/dL (70-99); Potassium 4.1 mmol/L (3.3-5.1); Sodium Level 136 mmol/L (133-145); Troponin T High Sensitivity 7 ng/L (<=22)
[2025-03-18 13:15] VITALS: BP 159/82; PULSE 44; RESP 13; O2SAT 97
[2025-03-18 14:00] VITALS: PULSE 43; RESP 11; O2SAT 97
[2025-03-18 14:15] LABS: Troponin T High Sens 2 HR 7 ng/L (<=22)
[2025-03-18] MEDS: cloNIDine HCl 0.1 MG Tablet PO (15:29)
[2025-03-18 15:32] VITALS: BP 185/91; PULSE 42; RESP 14; TEMP 36.8; O2SAT 100
== END 2025-03-18 15:44 | disposition home or self-care (01) ==
PROVIDERS: Emergency Provider Emergency Medicine; PCP Family Medicine; Visit Provider Emergency Medicine
DX: R07.9 Chest pain, unspecified (principal); E11.9 Type 2 diabetes mellitus without complications; R11.0 Nausea; F41.9 Anxiety disorder, unspecified; I10 Essential (primary) hypertension; E78.00 Pure hypercholesterolemia, unspecified; Z86.16 Personal history of COVID-19; G47.33 Obstructive sleep apnea (adult) (pediatric); Z99.89 Dependence on other enabling machines and devices
CPT/HCPCS: 71045; 80048; 84484; 85025; 93005; 99284; A4216

== ENCOUNTER 2025-03-26 14:28 | Emergency (ER) | payer OTHER, SELFPAY ==
[2025-03-26] VITALS (7 sets, daily range): BP systolic 123–175; BP diastolic 70–95; PULSE 43–52; RESP 12–20; TEMP 36.6; O2SAT 97–100
--- NOTE | 2025-03-26 17:59 | RAD_ITS ---
EXAM: XR Chest, 2 Views CLINICAL INDICATION: NEAR SYNCOPE TECHNIQUE: Frontal and lateral views of the chest. COMPARISON: No relevant prior studies available. FINDINGS: LUNGS AND PLEURAL SPACES: Unremarkable. No consolidation. No pneumothorax. HEART: Unremarkable. No cardiomegaly. MEDIASTINUM: Unremarkable. Normal mediastinal contour. BONES/JOINTS: Unremarkable. No acute fracture. RAD/Chest PA and Lateral IMPRESSION: No acute cardiopulmonary process. Reading Location: [id number]
[2025-03-26 18:01] LABS: Color, Urine Yellow (Yellow); Glucose, Dipstick Normal (Normal); Ketone-Dipstick 15 mg/dl (Negative); Leukocyte Esterase-Dipstick Negative /ul (Negative); Nitrite-Dipstick Negative (Negative); Occult Blood-Urine Negative /ul (Negative); Protein-Dipstick 15 mg/dl (Negative); Urine Bilirubin Dipstick Negative (Negative); Urine Clarity Sl. Cloudy (Clear); Urine Urobilinogen Normal (Normal)
--- NOTE | 2025-03-26 18:02 | EX.ED.DYSGE1 ---
HPI History of Present Illness Chief Complaint: Weakness Informant: patient Narrative Narrative: Patient is a 65-year-old male with history of pulmonary hypertension, KATIE on CPAP, hyperlipidemia, GERD, hypertension presenting with lightheadedness and nausea. He notes that he was having what was thought to be anxiety recently (had high blood pressure readings however his father in January, his mother is in poor health and he just started new job on the ninth of this month). His PCP started him on Prozac however he stopped it because of side effects including nausea, dizziness and insomnia. He tried the medicine again a little bit later for 4 days and the symptoms returned again. On the he was started on chlorthalidone for concern of elevated blood pressure. (He is also on lisinopril, Norvasc, atenolol, metformin and omeprazole). He notes that since starting the chlorthalidone he has been having dizziness which he describes as lightheaded as if he is going to pass out. He has had nausea specially postprandially decreased appetite. Over this time he is lost about 14 pounds. He has also had some associated diarrhea. He denies abdominal pain. He denies any chest pain or leg swelling. Denies any shortness of breath. After coming inside today he was in the AC room at work and he started sweating and felt he was in a pass out so were called EMS and brought him to the emergency room. No report of any fevers. No other complaints or concerns reported at this time. [facility] Medical History Dyspnea on exertion Pulmonary HTN BPH (benign prostatic hyperplasia) KATIE on CPAP Pure hypercholesterolemia GERD (gastroesophageal reflux disease) Essential hypertension COVID-19 Acute pain in scrotum Diabetes Home Medications ?Medication ?Instructions ?Recorded ?Last Taken ?Type atenolol 25 mg tablet 25 mg PO DAILY 11/26/16 03/15/25 History lisinopril 40 mg tablet 40 mg PO BID 11/26/16 03/15/25 History acetaminophen 500 mg tablet 500 - 1,000 mg PO Q6H PRN PRN Pain 12/09/18 03/15/25 History ammonium lactate 12 % lotion (Skin 1 applic TP DAILY skin 12/09/18 03/15/25 History Treatment) metformin 500 mg tablet 500 mg PO DAILY 12/09/18 03/15/25 History amlodipine 10 mg tablet 10 mg PO DAILY #60 TABLETS 12/10/18 03/14/25 Rx omeprazole 40 mg capsule,delayed 40 mg PO DAILY 12/06/21 03/15/25 History release latanoprost 0.005 % eye drops 1 drp ophthalmic (eye) DAILY 12/19/23 03/15/25 History timolol maleate 0.5 % eye drops 1 drp ophthalmic (eye) Q12H 12/19/23 03/15/25 History ciprofloxacin HCl 500 mg tablet 500 mg PO Q12.TCU 03/15/25 03/15/25 History fluoxetine 20 mg capsule 20 mg PO DAILY 03/15/25 03/14/25 History lorazepam 1 mg tablet (Ativan) 1 mg PO DAILY PRN anxiety 10 days 03/15/25 Unknown Rx #10 tabs amitriptyline 50 mg tablet 25 - 50 mg PO QHS 03/26/25 Unknown History chlorthalidone 25 mg tablet 25 mg PO DAILY 03/26/25 Unknown History Held on 03/26/25. Instructions: Resume on 03/31/25. Hold till follow up with your PCP ondansetron 4 mg disintegrating 4 mg PO Q8H PRN PRN Nausea #10 tabs 03/26/25 Unknown Rx tablet Allergy/AdvReac Type Severity Reaction Status Date / Time No Known Allergies Allergy Verified 03/26/25 14:49 Family History Mother Hypertension Father Hypertension Diabetes Uncle CAD (coronary artery disease) Myocardial infarction, Onset Age: 50 Surgical History History of cystoscopy Social History housing: house current occupational status: employed Smoking Status: Never smoker alcohol intake: current details: Occasional substance use type: does not use caffeine: No ROS ROS ED Constitutional Constitutional ED: Reports sweats, weight loss and other Details: decreased appetite. ; Denies chills or fever(s) Eyes Eyes: Denies change in vision Cardiovascular Cardiovascular: Denies chest pain or palpitations Respiratory/Chest Respiratory/Chest: Denies cough or dyspnea Gastrointestinal Gastrointestinal: Reports diarrhea and nausea; Denies abdominal pain, melena or vomiting Genitourinary Genitourinary ED: Reports other Details: Notes chronic pelvic discomfort associated pelvic floor dysfunction as well as a recent treatment for prostatitis. ; Denies dysuria or hematuria Musculoskeletal Musculoskeletal: Denies arthralgias or myalgias Integumentary Denies rash Neurologic Neurologic: Denies headache(s), paresthesias or weakness Psychiatric Psychiatric: Reports anxiety Hematologic/Lymphatic Hematologic/Lymphatic: Denies easy bleeding or easy bruising EXAM Physical Exam Const Vital Signs: 03/26/25 14:44 03/26/25 14:49 03/26/25 17:20 Temperature 97.8 F Temperature Source Temporal Pulse Rate 49 L 47 L Pulse Rate [Lying] Pulse Rate [Sitting (for 1 minute prior to obtaining)] Pulse Rate [Standing (for 1 minute prior to obtaining)] Respiratory Rate 20 H 12 Respiratory Effort Normal Non-Labored Respiratory Pattern Normal Blood Pressure 133/95 H 175/79 H Blood Pressure [Lying] Blood Pressure [Sitting (for 1 minute prior to obtaining)] Blood Pressure [Standing (for 1 minute prior to obtaining)] Blood Pressure Mean 107 111 Blood Pressure Mean [Lying] Blood Pressure Mean [Sitting (for 1 minute prior to obtaining)] Blood Pressure Mean [Standing (for 1 minute prior to obtaining)] Pulse Ox 99 100 Oxygen Delivery Method Room Air 03/26/25 19:00 03/26/25 19:33 03/26/25 21:00 Temperature Temperature Source Pulse Rate 49 L 44 L Pulse Rate [Lying] 43 L Pulse Rate [Sitting (for 1 minute prior to obtaining)] 44 L Pulse Rate [Standing (for 1 minute prior to obtaining)] 49 L Respiratory Rate 16 16 Respiratory Effort Respiratory Pattern Blood Pressure 152/79 H 157/82 H Blood Pressure [Lying] 138/73 H Blood Pressure [Sitting (for 1 minute prior to obtaining)] 144/80 H Blood Pressure [Standing (for 1 minute prior to obtaining)] 123/74 H Blood Pressure Mean 103 107 Blood Pressure Mean [Lying] 94 Blood Pressure Mean [Sitting (for 1 minute prior to obtaining)] 101 Blood Pressure Mean [Standing (for 1 minute prior to obtaining)] 90 Pulse Ox 97 98 Oxygen Delivery Method Room Air Room Air 03/26/25 22:32 Temperature Temperature Source Pulse Rate Pulse Rate [Lying] 52 L Pulse Rate [Sitting (for 1 minute prior to obtaining)] 49 L Pulse Rate [Standing (for 1 minute prior to obtaining)] 48 L Respiratory Rate Respiratory Effort Respiratory Pattern Blood Pressure Blood Pressure [Lying] 129/79 H Blood Pressure [Sitting (for 1 minute prior to obtaining)] 132/76 H Blood Pressure [Standing (for 1 minute prior to obtaining)] 139/70 H Blood Pressure Mean Blood Pressure Mean [Lying] 95 Blood Pressure Mean [Sitting (for 1 minute prior to obtaining)] 94 Blood Pressure Mean [Standing (for 1 minute prior to obtaining)] 93 Pulse Ox Oxygen Delivery Method Positive well nourished and well developed General Appearance ED: well developed and NAD HEENT Reports moist mucous membranes Neck supple and no JVD Chest Wall inspection of chest normal and palpation of chest normal Resp normal respiratory effort and clear to auscultation bilaterally Cardio regular rhythm and no murmurs Rate: bradycardia GI normal to inspection, nondistended, normoactive bowel sounds, non-tender and non-distended GI Narrative: Negative Luna sign Palpation: soft; Negative for tender or guarding Extremity normal to inspection General Extremety ED: Negative for edema General Extremity: Negative for edema Neuro oriented x3 Sensorium / Orientation: alert Motor Exam: Negative for general weakness Psych mental status grossly normal Mood & Affect: Negative for anxious or tearful Skin no rashes or lesions noted and no wounds MDM MDM MDM Narrative Medical decision making narrative: Patient evaluated for a near syncopal episode that occurred at work. Tells me over the past week and a half or so he has been Rhea new medication has been has a medication reaction and had associated nausea with diarrhea and decreased appetite as well as weight loss. He does report that his new job is more physical is used to any has been sweating a lot even on his air conditioning. Differential includes hypovolemia, medication reaction, ACS, arrhythmia, symptomatic anemia, infection, PATITO and electrolyte derangement as well as anxiety reaction. Vital signs significant for mild bradycardia however this is chronic for the patient. He is on chronic atenolol. CBC unremarkable. CMP does show an elevation of his creatinine to 1.57, hypokalemia with a chloride of 94, bicarb of 20.9 and elevated anion gap of 18. His BUN is also elevated 30. I suspect this is prerenal associated with dehydration. In addition his orthostatics are positive and he is dizzy with sitting. He is given a total of 2 L of IV fluids. His high-sensitivity troponin is normal at 9 and on repeat 9. This is not consistent with ACS or acute cardiac process. Urinalysis does show some casts and ketones but otherwise not consistent with infection. There is 1+ bacteria but there is also some slight contamination. Do not think there is any complication associated with his recent prostatitis given that urinalysis. Chest x-ray viewed by myself as well as radiology does not show any acute process. Repeat orthostatics obtained after second liter IV fluid. Aridol negative. He does have a slight headache is given dose of Tylenol. He states he thinks a lot of his headache is from not eating much today. At this time I think we can hold the patient's chlorthalidone (blood pressure is normal. He is not even taking his evening medications which she would normally take at 7 PM) and he has been fluid resuscitated. Do not think he requires admission for this. He has follow-up appointment with his PCP on Sunday. He can have his BMP rechecked at that time. In the meantime we will have him hold his chlorthalidone and push fluids. Will give a work note for tomorrow so he can rest over the weekend not get dehydrated. He is comfortable this plan of care. Will send in a prescription of Zofran to help ensure that he can continue to push fluids. Given return precautions. Discharged home in stable condition. Patient is given one dose of Ativan for anxiety and to help him sleep at discharge. Will reach out to patient's PCP to help ensure close outpatient follow-up and let them know plan of care. Lab Data Attestation: I reviewed the patient's lab results. Labs: Laboratory Results - last 24 hr 03/26/25 03/26/25 03/26/25 17:47 17:50 20:00 WBC 7.6 RBC 5.45 Hgb 16.3 Hct 45.4 MCV 83.3 MCH 29.9 MCHC 35.9 RDW Std Deviation 38.9 RDW Coeff of Elvis 12.8 Plt Count 283 MPV 10.3 Immature Gran % (Auto) 0.300 Neut % (Auto) 66.3 Lymph % (Auto) 22.9 [place] % (Auto) 9.7 Eos % (Auto) 0.3 Baso % (Auto) 0.5 Absolute Neuts (auto) 5.0 Absolute Lymphs (auto) 1.74 Nucleated RBC % 0 Sodium 133 Potassium 4.2 Chloride 94 L Carbon Dioxide 20.9 L Anion Gap 18 H BUN 30 H Creatinine 1.57 H Est GFR (MDRD) Non-Af 49 L BUN/Creatinine Ratio 19.2 Glucose 92 Calcium 10.2 Magnesium 2.2 Total Bilirubin 1.25 AST 23 ALT 16 Alkaline Phosphatase 72 Troponin T High Sens 9 D Troponin T Hi Sens 2 Hr 9 Total Protein 8.1 Albumin 4.7 Globulin 3.3 Albumin/Globulin Ratio 1.4 Lipase 36 Urine Color Yellow Urine Clarity Sl. Cloudy Urine pH 5.0 Ur Specific [place] 1.020 Urine Protein 15 H Urine Glucose (UA) Normal Urine Ketones 15 H Urine Occult Blood Negative Urine Nitrite Negative Urine Bilirubin Negative Urine Urobilinogen Normal Ur Leukocyte Esterase Negative Urine RBC 0-5 SEEN Urine WBC 0-5 SEEN Ur Squamous Epith Cells 0-5 SEEN Urine Bacteria 1+ Hyaline Casts 0-5 SEEN Urine Mucus RARE Radiography Chest X-Ray - ED: 2 View, Read by ED Physician, Read by Radiologist and No Acute Disease Diagnostic Testing: Clinical Impression(s) from Imaging Studies Chest X-Ray 03/26/25 17:59 IMPRESSION: No acute cardiopulmonary process. Reading Location: [facility] Rhythm Strip Rhythm Strip: Sinus Rhythm Rate: 49 Ectopy: None EKG Initial EKG: Attestation: I personally reviewed and interpreted this EKG as follows: Interpretation: Sinus Bradycardia Comments: Sinus bradycardia with PACs at a rate of 49 bpm Normal axis Normal intervals Normal ST segments Prior EKG tracings: available for review Prior: Unchanged Discharge Plan Triage Chief Complaint: Weakness ED Provider: Ariadna Tracy Dx/Rx/DC Orders Clinical Impression: Acute dehydration, Essential hypertension, Orthostatic hypotension, Nausea, Near syncope, Mild renal insufficiency Instructions: ED Dehydration (Adult), ED Near-Fainting, Uncertain Cause Prescriptions: New ondansetron 4 mg tablet,disintegrating 4 mg PO Q8H PRN PRN (Reason: Nausea) Qty: 10 0RF Held chlorthalidone 25 mg tablet 25 mg PO DAILY Hold Instructions: Resume on 03/31/25. Hold till follow up with your PCP No Action timolol maleate 0.5 % drops 1 drp ophthalmic (eye) Q12H latanoprost 0.005 % drops 1 drp ophthalmic (eye) DAILY atenolol 25 MG tablet 25 mg PO DAILY lisinopril 40 MG tablet 40 mg PO BID metformin 500 MG tablet 500 mg PO DAILY ammonium lactate [Skin Treatment] 400 GM lotion 1 applic TP DAILY acetaminophen 500 MG tablet 500 - 1,000 mg PO Q6H PRN PRN (Reason: Pain) amlodipine 10 MG tablet 10 mg PO DAILY Qty: 60 0RF ciprofloxacin HCl 500 mg tablet 500 mg PO Q12.TCU fluoxetine 20 mg capsule 20 mg PO DAILY lorazepam [Ativan] 1 mg tablet 1 mg PO DAILY PRN (Reason: anxiety) 10 Days Qty: 10 0RF amitriptyline 50 mg tablet 25 - 50 mg PO QHS omeprazole 40 mg capsule,delayed release(DR/EC) 40 mg PO DAILY Stand Alone Forms: ED Work / School Excuse Primary Care Provider: Qasim Ellis Referrals: Qasim Ellis MD [Primary Care Provider] - Activity Restrictions/Additional Instructions: Make sure you are pushing fluids and drinking of fluids that contain electrolytes that are in addition to plain water. Avoid too much caffeine. Please hold your chlorthalidone until you follow-up with your primary care doctor on Sunday. Let them know that the ER recommended you have your kidney function rechecked on Sunday. Make sure getting plenty of rest. I do think it safe for you to start the mirtazapine that was prescribed to you but ultimately that is your decision. Print Language: Maori Disposition Disposition: Home, Self Care
[2025-03-26 18:11] LABS: Absolute Lymphocyte Count 1.74 X10^3/uL (0.83-4.51); Basophil# 0.04 X10^3/uL; Basophil% 0.5 % (0-1); Eosinophil# 0.02 X10^3/uL; Eosinophils% 0.3 % (0-5); Hematocrit 45.4 % (40-54); Hemoglobin 16.3 g/dL (13.0-16.5); Lymphocyte # 1.74 X10^3/ul (0.83-4.51); Lymphocyte % 22.9 % (19-41); Mean Corp Hgb Conc 35.9 g/dL (32-36); Mean Corpuscular Hgb 29.9 pg (27.0-32.0); Mean Corpuscular Volume 83.3 fL (80-94); Mean Platelet Vol. 10.3 fl (6.2-12.0); Monocyte# 0.74 X10^3/uL; Monocyte% 9.7 % (0-10); NRBC Flagged by Analyzer 0 % (0-5); Neutrophil # 5.04 X10^3/uL (2.7-7.7); Neutrophil % 66.3 % (47-70); Platelet Count 283 K/mm3 (150-450); RBC Distribution Width CV 12.8 % (11.6-14.6); RBC Distribution Width SD 38.9 fl (35.1-43.9); Red Blood Count 5.45 M/mm3 (4.6-6.2); White Blood Count 7.6 K/mm3 (4.4-11.0)
[2025-03-26 18:35] LABS: Troponin T High Sensitivity 9 ng/L (<=22)
[2025-03-26] MEDS: 0.9% Normal Saline (1000mL) 1,000 ML 999 ML IV ×2 (18:35→21:30)
[2025-03-26] MEDS: Ondansetron 4 MG/2 ML Vial IV (18:35)
[2025-03-26 18:52] LABS: ALB/GLOB Ratio 1.4 RATIO (0.9-2.4); AST(SGOT) 23 U/L (<=37); Alanine Aminotransfer ALT/SGPT 16 U/L (<=46); Albumin, Serum 4.7 g/dL (3.4-4.8); Alkaline Phosphatase 72 U/L (40-129); Anion Gap 18 (5-15); BUN 30 mg/dL (4-19); BUN/Creat Ratio 19.2 RATIO (10-20); Calcium,Total 10.2 mg/dL (7.6-11.0); Carbon Dioxide 20.9 mmol/L (21.0-32.0); Chloride 94 mmol/L (98-108); Creatinine, Serum 1.57 mg/dL (0.70-1.20); EST Glomerular Filtration Rate 49 (>60); Globulin 3.3 g/dL (2.2-4.2); Glucose 92 mg/dL (70-99); Lipase 36 U/L (13-75); Magnesium 2.2 mg/dL (1.5-2.2); Potassium 4.2 mmol/L (3.3-5.1); Protein, Total 8.1 g/dL (5.9-8.4); Sodium Level 133 mmol/L (133-145); Total Bilirubin 1.25 mg/dL (0.00-1.30)
[2025-03-26 19:14] LABS: Red Blood Cells-Urine 0-5 SEEN /hpf (0-5); Squamous Epithelial Cells - UA 0-5 SEEN /hpf (0-5); White Blood Cells 0-5 SEEN /hpf (0-5)
[2025-03-26 19:17] LABS: Bacteria 1+ /hpf (None Seen); Hyaline Cast 0-5 SEEN /lpf (0-5); Mucous, Urine RARE /hpf (<or=2+)
[2025-03-26] MEDS: Acetaminophen 325 MG Tablet 650 MG PO (19:30)
[2025-03-26 20:35] LABS: Troponin T High Sens 2 HR 9 ng/L (<=22)
[2025-03-26] MEDS: LORazepam 1 MG Tablet PO (23:40)
== END 2025-03-26 23:43 | disposition home or self-care (01) ==
PROVIDERS: Emergency Provider Emergency Medicine; PCP Family Medicine; Visit Provider Emergency Medicine
DX: E86.0 Dehydration (principal); E11.9 Type 2 diabetes mellitus without complications; I95.1 Orthostatic hypotension; Z79.84 Long term (current) use of oral hypoglycemic drugs; I10 Essential (primary) hypertension; N28.9 Disorder of kidney and ureter, unspecified; F41.9 Anxiety disorder, unspecified; E78.00 Pure hypercholesterolemia, unspecified; R19.7 Diarrhea, unspecified; G47.33 Obstructive sleep apnea (adult) (pediatric); Z99.89 Dependence on other enabling machines and devices; Z86.16 Personal history of COVID-19; K21.9 Gastro-esophageal reflux disease without esophagitis
CPT/HCPCS: 71046; 80053; 81001; 83690; 83735; 84484; 85025; 87086; 93005; 96361; 96374; 99285; A4216; J2405

== ENCOUNTER → 2025-03-28 | Outpatient (CLI) | payer OTHER, SELFPAY ==
[2025-03-28 14:41] LABS: Mucous, Urine 0 SEEN /hpf (<or=2+)
[2025-03-28 15:09] LABS: Absolute Neutrophil Count 5.5 X10^3/uL (2.0-7.7); Basophil# 0.04 X10^3/uL; Basophil% 0.5 % (0-1); Eosinophil# 0.04 X10^3/uL; Eosinophils% 0.5 % (0-5); Hematocrit 47.4 % (40-54); Hemoglobin 16.6 g/dL (13.0-16.5); Lymphocyte % 17.5 % (19-41); Mean Corpuscular Hgb 29.2 pg (27.0-32.0); Mean Corpuscular Volume 83.3 fL (80-94); Mean Platelet Vol. 10.2 fl (6.2-12.0); Monocyte# 0.53 X10^3/uL; Monocyte% 7.1 % (0-10); NRBC Flagged by Analyzer 0 % (0-5); Neutrophil # 5.51 X10^3/uL (2.7-7.7); Neutrophil % 74.1 % (47-70); Platelet Count 315 K/mm3 (150-450); RBC Distribution Width CV 12.5 % (11.6-14.6); RBC Distribution Width SD 37.9 fl (35.1-43.9); Red Blood Count 5.69 M/mm3 (4.6-6.2); White Blood Count 7.4 K/mm3 (4.4-11.0)
[2025-03-28 15:22] LABS: Color, Urine Yellow (Yellow); Glucose, Dipstick Normal (Normal); Ketone-Dipstick Negative (Negative); Leukocyte Esterase-Dipstick 25 /ul (Negative); Nitrite-Dipstick Negative (Negative); Occult Blood-Urine Negative /ul (Negative); Protein-Dipstick 30 mg/dl (Negative); Specific Gravity, Urine 1.015 (1.002-1.030); Urine Bilirubin Dipstick Negative (Negative); Urine Clarity Clear (Clear); Urine Urobilinogen Normal (Normal)
[2025-03-28 16:07] LABS: Red Blood Cells-Urine 0-5 SEEN /hpf (0-5); White Blood Cells 0-5 SEEN /hpf (0-5)
[2025-03-28 16:08] LABS: Bacteria RARE /hpf (None Seen); Hyaline Cast 10-25 SEEN /lpf (0-5); Squamous Epithelial Cells - UA 0-5 SEEN /hpf (0-5)
[2025-03-28 16:16] LABS: ALB/GLOB Ratio 1.4 RATIO (0.9-2.4); AST(SGOT) 20 U/L (<=37); Alanine Aminotransfer ALT/SGPT 16 U/L (<=46); Albumin, Serum 4.8 g/dL (3.4-4.8); Alkaline Phosphatase 75 U/L (40-129); Anion Gap 15 (5-15); BUN 13 mg/dL (4-19); BUN/Creat Ratio 12.6 RATIO (10-20); CRP < 3.00 mg/L (0.0-3.0); Calcium,Total 9.7 mg/dL (7.6-11.0); Carbon Dioxide 20.4 mmol/L (21.0-32.0); Chloride 99 mmol/L (98-108); Creatinine, Serum 1.03 mg/dL (0.70-1.20); EST Glomerular Filtration Rate 82 (>60); Globulin 3.4 g/dL (2.2-4.2); Glucose 118 mg/dL (70-99); PSA,Total- Diagnostic 4.22 ng/mL (0.00-4.00); Potassium 4.5 mmol/L (3.3-5.1); Protein, Total 8.1 g/dL (5.9-8.4); Sodium Level 134 mmol/L (133-145); Total Bilirubin 0.88 mg/dL (0.00-1.30)
== END | disposition home or self-care (01) ==
PROVIDERS: PCP Family Medicine; Referring Provider Family Medicine; Visit Provider Family Medicine
DX: N41.9 Inflammatory disease of prostate, unspecified (principal); R10.84 Generalized abdominal pain
CPT/HCPCS: 36415; 80053; 81001; 84153; 85025; 86140; 87086

== ENCOUNTER → 2025-06-17 | Outpatient (CLI) | payer OTHER, SELFPAY ==
[2025-06-17 15:22] LABS: Hematocrit 43.5 % (40-54); Hemoglobin 15.1 g/dL (13.0-16.5); Immature Granulocytes Count 0.010 X10^3/uL (0.0-0.0); Mean Corp Hgb Conc 34.7 g/dL (32-36); Mean Corpuscular Volume 84.0 fL (80-94); Mean Platelet Vol. 10.7 fl (6.2-12.0); NRBC Flagged by Analyzer 0 % (0-5); Platelet Count 267 K/mm3 (150-450); RBC Distribution Width CV 13.3 % (11.6-14.6); RBC Distribution Width SD 41.1 fl (35.1-43.9); Red Blood Count 5.18 M/mm3 (4.6-6.2); White Blood Count 4.9 K/mm3 (4.4-11.0)
[2025-06-17 15:48] LABS: AST(SGOT) 21 U/L (<=37); Alanine Aminotransfer ALT/SGPT 15 U/L (<=46); Albumin, Serum 4.5 g/dL (3.4-4.8); Alkaline Phosphatase 73 U/L (40-129); Anion Gap 13 (5-15); BUN 9 mg/dL (4-19); BUN/Creat Ratio 10.6 RATIO (10-20); Calcium,Total 9.6 mg/dL (7.6-11.0); Carbon Dioxide 22.8 mmol/L (21.0-32.0); Chloride 104 mmol/L (98-108); Globulin 3.0 g/dL (2.2-4.2); Glucose 102 mg/dL (70-99); PSA,Total- Diagnostic 1.78 ng/mL (0.00-4.00); Potassium 3.8 mmol/L (3.3-5.1)
[2025-06-17 15:50] LABS: CRP < 3.00 mg/L (0.0-3.0)
== END | disposition home or self-care (01) ==
LOC: MFPLAB 13:58
PROVIDERS: PCP Family Medicine; Visit Provider Family Medicine
DX: R10.32 Left lower quadrant pain (principal); N41.1 Chronic prostatitis
CPT/HCPCS: 36415; 80053; 84153; 85025; 86140

== ENCOUNTER → 2025-07-15 | Outpatient (CLI) | payer OTHER, SELFPAY ==
[2025-07-15 18:14] LABS: Hematocrit 45.0 % (40-54); Hemoglobin 15.7 g/dL (13.0-16.5); Immature Granulocytes Count 0.030 X10^3/uL (0.0-0.0); Mean Corp Hgb Conc 34.9 g/dL (32-36); Mean Corpuscular Volume 82.4 fL (80-94); Mean Platelet Vol. 10.9 fl (6.2-12.0); NRBC Flagged by Analyzer 0 % (0-5); Platelet Count 254 K/mm3 (150-450); RBC Distribution Width CV 13.1 % (11.6-14.6); RBC Distribution Width SD 38.7 fl (35.1-43.9); Red Blood Count 5.46 M/mm3 (4.6-6.2); White Blood Count 6.6 K/mm3 (4.4-11.0)
[2025-07-15 18:35] LABS: AST(SGOT) 19 U/L (<=37); Alanine Aminotransfer ALT/SGPT 14 U/L (<=46); Albumin, Serum 4.6 g/dL (3.4-4.8); Alkaline Phosphatase 75 U/L (40-129); Anion Gap 13 (5-15); BUN 7 mg/dL (4-19); BUN/Creat Ratio 9.4 RATIO (10-20); Calcium,Total 9.7 mg/dL (7.6-11.0); Carbon Dioxide 22.8 mmol/L (21.0-32.0); Chloride 104 mmol/L (98-108); Globulin 3.2 g/dL (2.2-4.2); Glucose 95 mg/dL (70-99); Potassium 3.8 mmol/L (3.3-5.1)
[2025-07-15 19:04] LABS: CRP < 3.00 mg/L (0.0-3.0)
== END | disposition home or self-care (01) ==
LOC: MFPLAB 16:11
PROVIDERS: PCP Family Medicine; Visit Provider Family Medicine
DX: K57.32 Diverticulitis of large intestine without perforation or abscess without bleeding (principal)
CPT/HCPCS: 36415; 80053; 83036; 85025; 86140

== ENCOUNTER → 2025-08-18 | Outpatient (CLI) | payer OTHER, SELFPAY ==
--- NOTE | 2025-08-18 14:37 | RAD_ITS ---
PROCEDURE: HIPS B/L MIN 2 VIEWS W/ PELVIS 08/18/2025 REASON FOR EXAM: HIP PAIN TECHNIQUE: Procedure Code: RADHPELP Modality: DX Procedure: HIPS B/L MIN 2 VIEWS W/ PELVIS Laterality: FINDINGS: No evidence of acute fracture or dislocation. Moderate degenerative changes of the bilateral hips. Degenerative changes of the partially visualized spine. RAD/Hips B/L min 2 views w/ Pelvis IMPRESSION: No acute osseous abnormalities. Moderate bilateral hip osteoarthrosis. Reading Location: [id number]
== END | disposition home or self-care (01) ==
LOC: MTRAD 14:30
PROVIDERS: PCP Family Medicine; Referring Provider Family Medicine; Visit Provider Family Medicine
DX: M25.551 Pain in right hip (principal); M25.552 Pain in left hip
CPT/HCPCS: 73521

== ENCOUNTER 2025-09-08 13:30 | Outpatient (RCR) | payer OTHER, SELFPAY ==
--- NOTE | 2025-06-16 14:39 | HP.PTEVAL_ITS ---
Patient's Visit Information Visit Information Visit Information: SARBJIT SHARP II is a 65 year old M referred to Physical Therapy by Dr. Qasim Ellis MD with a diagnosis of BACK, HIP AND KNEE STIFFNESS. 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 DLS STARTING WITH A NEUTRAL SPINE PROGRESSING ROM TOLERATED. BERNICE HIP, KNEE AND ANKLE ROM, STRETCHING AND STRENGTHENING. HEP INSTRUCTION. 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 C/O KNEE BERNICE KNEE PAIN AND STIFFNESS TOO. MILD INTERMITTENT R GROIN PAIN. DENIES BERNICE LE NUMBNESS AND TINGLING. Present since: CHRONIC BACK, HIP AND KNEE PAIN AND STIFFNESS BUT HIPS GOT A LOT WORSE THIS SUMMER. Pain Scale: LEAST 2/10, WORST 8/10 (EITHER HIP) Currently: 3/10 (R HIP IS THE WORST RIGHT NOW) Is it getting better, worse or staying the same: STAYING THE SAME. GOOD DAYS AND BAD DAYS. Commenced as a result of: DEEP CLEANING AT THE SCHOOL THIS SUMMER. A LOT OF BENDING. Worse: AFTER SITTING, IN SITTING ISN'T GREAT EITHER, LAYING DOWN CAN'T GET COMFORTABLE, BENDING, TWISTING Better: UP MOVING AROUND Disturbed sleep: YES Previous history/Previous treatment: CHIROPRACTIC STARTING 25 OR 30 YEARS AGO WITH LOW BACK THEN AT SOME POINT ADDED HIPS - OFF AND ON NEEDED WITH LAST VISIT BEING ABOUT 6 WEEKS AGO - RECENTLY HASN'T HELPED MUCH. NO INJECTIONS, PT OR SURGERIES. NO PRESCRIPTION MEDICATIONS. Treatment this episode: TYLONOL ARTHRITIS Coughing/sneezing/straining: NE Gait: SLOWER AND AGGREVATING. STIFF AND SOMETIMES LIMP R LE MORE THAN L. Bowel or Bladder Dysfunction: DENIES BOWEL OR BLADDER INCONTINENCE Accidents: NO Unexplained weight loss: NO Imaging: NONE RECENT PMH/Recent major surgery: CHRONIC PROSTITITIS AND PELVIC FLOOR DYSFUNCTION - ON ANTIBIOTIC. Objective Objective: Sitting/Standing Posture: FH, RSH'S, INCREASED KYPHOSIS, DECREASED LORDOSIS. NO RELEVANT LATERAL LUMBAR SHIFT. Active Correction of posture: ONLY ABLE TO PARTIALLY CORRECT - INCREASES LBP Other Observations: THIS PATIENT AMBULATES INDEP'LY INTO PT WITH STIFF FLEXED GAIT PATTERN. HE WALKS WITH WIDE BASE OF SUPPORT, BERNICE LE EXTERNAL ROTATION, DECREASED TRUNK ROTATION, DECREASED BERNICE STRIDE LENGTH AND INCREASED TRUNK FLEXION. HE IS ABLE TO TRANSFER INDEP'LY FROM SIT TO STAND WITHOUT UE ASSIST BUT IT IS DIFFICULT. DIFFICULTY INITIATIING GAIT AFTER SITTING. Sensory deficit: BERNICE LE LIGHT TOUCH SENSATION GROSSLY INTACT AND SYMMETRICAL ROM deficit: BERNICE HS, QUAD, HIP IR AND CALF TIGHTNESS. 0-0-111 DEG FLEX LEFT KNEE AND 0-0-117 DEG FLEX R KNEE. END RANGE PAIN IN HIPS WITH BERNICE HIP IR TESTING. Motor deficit: R HIP 4-/5, KNEE 4/5, ANKLE 4/5. L HIP 4/5, KNEE 4-/5, ANKLE 4/5. Reflexes: UNABLE TO ELICIT BERNICE LE DTR'S. Dural Signs: NEGATIVE BERNICE LE'S. Lumbar mvmt loss: flex - MOD - INCREASES LBP, L KNEE PAIN AND BERNICE HIP PAIN - NW ext - PRICILA - INCREASES LBP - W R SG - PRICILA - INCREASES LBP AND R HIP PAIN - NW L SG - PRICILA - INCREASES LBP AND R HIP PAIN - NW Core strength: FAIR Palpation: NO ACUTE TENDERNESS OF LUMBAR, SACRAL, HIP OR KNEE REGIONS BUT BERNICE KNEES ARE SWOLLEN L > R. Balance/Special Test Scores Lower Extremity Functional Score: 39 Goals Goal 1:: DECREASE C/O INVOLVED JOINT PAIN BY AT LEAST 50% TO EASE WORK AND ADL FUNCTION Goal Time Frame: 6-8 Weeks Goal 2:: INCREASE PAINFREE TRUNK AND LE ROM TO EASE ADL'S. Goal Time Frame: 6-8 Weeks Goal 3:: IMPROVE FUNCTION CORE AND LE STRENGTH TO IMPROVE WORK AND ADL FUNCTION. Goal Time Frame: 6-8 Weeks Goal 4:: IMPROVE SITTING, STANDING, WALKING, LIFTING, RECREATIONAL, ADL AND WORK FUNCTION WITH AT LEAST 10 POINT IMPROVEMENT IN LEFS QUESTIONNAIRE SCORE. Goal 5:: INDEP HOME AND/OR WATER EX PROGRAMS FOR CONTINUED IMPROVEMENT ONCE FORMAL PHYSICAL THERAPY CONCLUDES. Rehabilitation Potential Physical Therapy Diagnosis: CORE AND BERNICE LE PAIN, STIFFNESS AND WEAKNESS LIMITING GAIT, WORK AND ADL'S Rehabilitation Potential: Good Anticipated Interventions Patient/Client Instruction: Educate patient on: Condition, Plan of Care and Risk Factors For the Purpose of:: To improve self management Therapeutic Exercise to Include: Strength training, Body mechanics, Postural training, Flexibilty training, Gait and locomotor training, Neuromotor development, In an aquatic setting and Dynamic Lumbar Stabilization Comment: GAIT ON STEPS For the Purpose of:: To decrease pain, To decrease swelling/inflammation, To improve muscle performance and motor function, To improve ability to perform ADL's, To increase tolerance to activity/condition/position, To improve ability of physical actions for home/community/work/leisure, To improve gait and locomotor functions, To decrease soft tissue restriction, To increase flexibility/ROM and To improve self management Text: Thank you for the opportunity to evaluate your patient. For Medicare and Medicare HMO plans, please review the plan of care and approve it. It will need to be FAXED BACK to us at [phone] for Medicare purposes. For Medicare only, by signing this I certify the plan of care. Please let me know if there are questions or concerns regarding this plan of care. Physician Signature: _Date:
--- NOTE | 2025-09-08 14:18 | HP.PTDCSUM ---
Discharge Summary D/C summary: It has been my pleasure to treat SARBJIT SHARP II referred by Dr. Qasim Ellis MD, with the diagnosis of BACK, HIP AND KNEE STIFFNESS for a total of 9 visit(s). Discharge Date: 09/08/25 Please see the following information for a summary of their discharge status. Subjective Subjective: PATIENT REPORTS HE THINKS THERAPY HELP AND SUNDAY WAS THE LAST DAY HE WORKED BECAUSE HIS CONTRACT ENDED. HE REPORTS HIS FLEXIBILITY IMPROVED WITH THERAPY AND HE TYPICALLY FELT GOOD WHEN HE LEFT BUT THEN PAIN INCREASED AFTER WORK ACTIVITIES. HE STATES HE FEELS LIKE HE KNOWS WHAT TO DO ON HIS OWN NOW AND PLANS TO GET A JOB THAT ISN'T STRENUOUS. Pain Back: Pain Intensity (Out of 10): 2 Hips: Pain Intensity (Out of 10): 2 L Knee: Pain Intensity (Out of 10): 4 Overall Improvement % Improvement: 55 Objective Objective/Function: PATIENT WAS SEEN TODAY FOR RE-ASSESSMENT OF PROGRESS TOWARD THE SET PT GOALS AND THE NEED FOR FURTHER PHYSICAL THERAPY VS READINESS FOR DISCHARGE. UPON EXAM TODAY: ROM deficit: BERNICE HS, QUAD, HIP IR AND CALF TIGHTNESS. 0-0-124 DEG FLEX LEFT KNEE AND 0-0-125 DEG FLEX R KNEE. END RANGE PAIN IN HIPS WITH BERNICE HIP IR TESTING. Motor deficit: R HIP 4/5, KNEE 5/5, ANKLE 5/5. L HIP 4/5, KNEE 5/5, ANKLE 5/5. Lumbar mvmt loss: flex - MIN ext - MOD - INCREASES LBP - NW R SG - MOD - INCREASES LBP AND L HIP PAIN - NW L SG - MOD - INCREASES LBP AND R HIP PAIN - NW Goals Goal 1:: DECREASE C/O INVOLVED JOINT PAIN BY AT LEAST 50% TO EASE WORK AND ADL FUNCTION Goal Progress: Goal Met Goal 2:: INCREASE PAINFREE TRUNK AND LE ROM TO EASE ADL'S. Goal Progress: Goal Met Goal 3:: IMPROVE FUNCTION CORE AND LE STRENGTH TO IMPROVE WORK AND ADL FUNCTION. Goal Progress: Goal Met Goal 4:: IMPROVE SITTING, STANDING, WALKING, LIFTING, RECREATIONAL, ADL AND WORK FUNCTION WITH AT LEAST 10 POINT IMPROVEMENT IN LEFS QUESTIONNAIRE SCORE. Goal Progress: Goal Met Goal 5:: INDEP HOME AND/OR WATER EX PROGRAMS FOR CONTINUED IMPROVEMENT ONCE FORMAL PHYSICAL THERAPY CONCLUDES. Goal Progress: Goal Met Plan Plan: D/C TO INDEP WATER EX. D/C Information d/c sentence: If there are questions or concerns regarding this patient's physical therapy, please feel free to call me at [phone]. Thank you for the referral of this patient. Sincerely, Stacy Kirk, PT, Cert MDT Balance/Gait/Functional tests Balance/Special Test Scores Lower Extremity Functional Score: 57 Improvement % Improvement: 55
== END 2025-09-08 19:00 | disposition home or self-care (01) ==
LOC: PT 13:30
PROVIDERS: PCP Family Medicine; Referring Provider Family Medicine; Visit Provider Family Medicine
DX: M25.669 Stiffness of unspecified knee, not elsewhere classified (principal); M25.659 Stiffness of unspecified hip, not elsewhere classified; M25.69 Stiffness of other specified joint, not elsewhere classified
CPT/HCPCS: 97113; 97162; 97530